=== PATIENT | male | born 1930 | race Caucasian/White ===

== ENCOUNTER 2017-08-10 14:49 | Inpatient (IN) | payer OTHER, BC ==
--- NOTE | 2017-08-10 14:55 | PDOC ---
History of Present Illness - History of Present Illness Initial Comments: 08/10/17 14:54 86 year old male with a hx of ESRD on dialysis /Ana M/Mon (last dialysis today) , DM, CHF, HTN, Became altered during chemotherapy for colon cancer appointment. Last known well 2:15. EMS reported that patient was previously alert, verbal and oriented to person only. New right sided facial droop. Per [facility]: At Baseline: alerted and oriented x3, does not walk, started radiation therapy yesterday for rectum PMH: On dialysis (this morning), diabetes, HTN, CHF, Dr. Bell PERSONNEL CLERK: Dr. Garcia Allergies: NKDA <Mitchell Toussaint - Last Filed: 08/11/17 12:12> <Ina Pino - Last Filed: 08/15/17 15:46> - General Chief Complaint: CVA/TIA Stated Complaint: POSS STROKE Past History <Mitchell Toussaint - Last Filed: 08/11/17 12:12> <Ina Pino - Last Filed: 08/15/17 15:46> - Past Medical History Allergies/Adverse Reactions: Allergies Allergy/AdvReac Type Severity Reaction Status Date / Time No Known Allergies Allergy Verified 08/10/17 14:51 *Physical Exam - Physical Exam Comments: 08/10/17 16:10 GENERAL: Not alert or oriented, unresponsive to name EYES: PERRLA, not able to assess extraocular eye muscles ENT: Dry mucus membranes NECK: mild JVD noted on exam LUNGS: CTA, no wheezes HEART: Tachycardic on exam, no murmurs appreciated ABDOMEN: Soft, nontender, BS present EXTREMITIES: Pulses not appreciated, 2+ pitting edema noted on exam NEUROLOGICAL: Unable to assess cranial nerves, patient has weakness of the L side of his face as well as weakness of the LLE with 0/5 motor strength and LLE unresponsive to pain. Patient has 2/5 motor strength of the RLE and is responsive to pain. RUE has 2/5 motor strength. LUE has 3/5 motor strength. <Mitchell Toussaint - Last Filed: 08/11/17 12:12> - Vital Signs Last Vital Signs Temp Pulse Resp BP Pulse Ox 99.1 F 91 H 22 92/53 94 L 08/15/17 14:14 08/15/17 14:14 08/15/17 14:14 08/15/17 14:14 08/15/17 09:00 <Ina Pino - Last Filed: 08/15/17 15:46> NIH Stroke Scale - Last Known Well Date/Time & Onset Date Last Known Well: 08/10/17 Time Last Known Well: 14:00 - Initial Evaluation Level of consciousness: Not alert, requires repeat stimulation to attend Ask patient the month and their age: Both incorrect Ask patient to open & close eyes; make fist and let go: Both incorrect Best gaze (horizontal eye movement): Forced deviation Visual field testing: Bilateral hemianopia (blind including cortical blindness) Facial paresis (Show teeth/raise eyebrows/close eyes tight): Partial paralysis ( total or near paralysis of lower face) Motor Function: Left Arm: Some effort against gravity Motor Function: Right Arm: Some effort against gravity Motor Function: Left Leg: No movement Motor Function: Right Leg: Some effort against gravity Limb Ataxia: Untestable (Joint fused or limb amputated), explain: (can't test due to mental status) Sensory(Use pinprick test arms,legs,trunk,face/side to side): Severe to total sensory loss Best language (Describe picture, name items, read sentences): Mute Dysarthria (read several words): Near unintelligible or unable to speak Extinction and Inattention: Profound elodia-inattention or extinction to more than one modality - Total Score NIH Stroke Scale Score: 32 <Mitchell Toussaint - Last Filed: 08/11/17 12:12> Critical Care Time/MDM Note - Medical Decision Making Note: 08/10/17 16:15 86 year old male with a hx of ESRD on dialysis /Mon/Mon (last dialysis today) , DM, CHF, HTN presenting for acute change in mental status after getting radiation therapy -CBC, CMP, Head CT, UA, Lactic acid -LA 2.8 <Mitchell Toussaint - Last Filed: 08/11/17 12:12> Discharge Disposition <Mitchell Toussaint - Last Filed: 08/11/17 12:12> <Ina Pino - Last Filed: 08/15/17 15:46> - Discharge Dispostion Disposition: TRANSFER ACUTE CARE/OTHER HOSP
--- NOTE | 2017-08-10 14:58 | PDOC ---
Attending Attestation - Resident Resident Name: Mitchell Toussaint - HPI HPI: 08/15/17 15:47 pt presents to the ED after the acute onset of altered mental status. Patient presented to radiation therapy in his usual state of health, and became mimimally responsive at 2:15-2:30. As per the patient's skilled nursing, his baseline is to be alert and oriented x 1. He is usually able to speak and follow verbal commands. History of ESRD on Hd, last HD on day of admission. Nereyda Vera called immediately on ED arrival. Case discussed with Dr. Duffy, who stated that due to the patient's severe global deficits, he did not feel that the patient was a TPA candidate. - Physicial Exam PE: 08/15/17 15:51 Agree with resident exam. On initial exam, patient was withdrawing to pain, but not speaking or following commands. Vital signs within normal limits, lungs are clear, heart regular rate and rhythm. - Medical Decision Making 08/15/17 15:52 Pt presents to the ED with the acute onset of altered mental status. Case discussed with Dr. Duffy on ED arrival, who does not feel that patient is a TPA candidate due to his global deficits. Patient has severe global deficits on exam, consistent with massive stroke or systemic cause of his symptoms such as infection or electrolyte disturbance. CT head shows no evidence of intracranial bleed. Labs show no electrolyte disturbance. Patient is afebrile rectally with only mildly elevated lactate. Will admit to medicine for altered mental status.
[2017-08-10 15:38] LABS: BASO % 0.2 % (0-2.0); HEMATOCRIT 23.1 % (35.4-49); HEMOGLOBIN 7.6 GM/dL (11.7-16.9); LYMPH % 14.8 % (8-40); MCHC 33.1 g/dl (32.0-35.9); MEAN CELL VOLUME 84.7 fl (80-96); MEAN PLT VOLUME 7.5 fl (7.5-11.1); MONO % 16.4 % (3.8-10.2); NEUT % 67.6 % (42.8-82.8); PLATELET COUNT 258 K/MM3 (134-434); RBC 2.73 M/mm3 (4.00-5.60); RDW 17.6 % (11.9-15.9); WHITE BLOOD COUNT 8.2 K/mm3 (4.0-10.0)
[2017-08-10 16:02] LABS: ALBUMIN 1.9 g/dl (3.4-5.0); ANION GAP 10 (8-16); BILIRUBIN,TOTAL 0.4 mg/dL (0.2-1.0); BLOOD UREA NITROGEN 35 mg/dL (7-18); CALCIUM 7.6 mg/dL (8.5-10.1); CHLORIDE 98 mmol/L (98-107); CO2 27 mmol/L (21-32); GLUCOSE,RANDOM 194 mg/dL (74-106); POTASSIUM 3.7 mmol/L (3.5-5.1); SGOT/AST 48 U/L (15-37); SGPT/ALT 47 U/L (12-78); SODIUM 135 mmol/L (136-145); TOT PROT 6.4 g/dl (6.4-8.2)
[2017-08-10 16:10] LABS: ALK PHOS 92 U/L (45-117)
--- NOTE | 2017-08-10 18:59 | PN ---
Teaching Attending Note Name of Resident: Johnny Valle ATTENDING PHYSICIAN STATEMENT I saw and evaluated the patient. I reviewed the resident's note and discussed the case with the resident. I agree with the resident's findings and plan as documented with exceptions below. SUBJECTIVE: patient currently with poor mental status, History obtained from HCP nephsarah Gongora, currently no prior records available. 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 Per ED physician, patient was unable to open eyes or move his right side, but noted with eye opening and some movements of right leg. Currently patient with minimal eye opening and some spontaneous movements of extermities but non verbal with no meaningful responses. Nephew at bedside, last saw him on Monday. Per him, patient had progressive decline since his 02/2017, his wheel chair bound, with chronic weakness of lower extremities, but able to wheel himself. Unable to do 12 point ROS, given mental status. OBJECTIVE: Vital Signs Period Temp Pulse Resp BP Sys/Sorensen Pulse Ox Last 24 Hr 70-74 18 127/63 98-98 Intake & Output 08/07/17 08/08/17 08/09/17 08/10/17 23:59 23:59 23:59 23:59 Weight 145 lb GENERAL: eye opening to voice, head leaning to left, no acute distress, cachectic HEAD: Normal with no signs of trauma. EYES: Right pupil reactive to light 2-> 1 mm, left pupil minimal reactive, Left eye lid droop EARS, NOSE, THROAT: Ears normal, nares patent, oropharynx clear without exudates. Dry mucous membrane. NECK: soft, supple, LUNGS: poor effort, positive breath sounds bilaterally, markedly limited exam HEART: S1S2 irregular ABDOMEN: Soft, ND, positive bowel sounds, no grimacing on exam, no voluntary or involuntary guarding or rigidity Extremities: bilateral lower extremities chronic edema with skin pitting and thickening, markedly larger on RLE than LLE, NEUROLOGICAL: opens eyes to voice, left eyelid droop, Rigth facial droop with flattening, doll's eye not appreciated, RUE flaccid, RLE minimal withdrawal to touch, LUE/LLE, withdraws to touch and spontaneous movements, further exam limited Active Medications Heparin Sodium (Porcine) (Heparin -) 5,000 unit SQ BID HAYES Laboratory Results - last 24 hr 08/10/17 08/10/17 08/10/17 15:31 15:31 15:31 WBC 8.2 RBC 2.73 L Hgb 7.6 L Hct 23.1 L MCV 84.7 MCH 28.0 MCHC 33.1 RDW 17.6 H Plt Count 258 MPV 7.5 Absolute Neuts (auto) 5.6 Neutrophils % 67.6 Lymphocytes % 14.8 Monocytes % 16.4 H Eosinophils % 1.0 Basophils % 0.2 Nucleated RBC % 0 Sodium 135 L Potassium 3.7 Chloride 98 Carbon Dioxide 27 Anion Gap 10 BUN 35 H Creatinine 3.0 H Creat Clearance w eGFR 19.94 Random Glucose 194 H Lactic Acid 2.8 H* Calcium 7.6 L Magnesium 2.0 Total Bilirubin 0.4 AST 48 H ALT 47 Alkaline Phosphatase 92 Ammonia Creatine Kinase 114 Troponin I 0.34 H Total Protein 6.4 Albumin 1.9 L TSH 2.38 Free T4 08/10/17 08/10/17 08/10/17 18:00 18:00 18:00 WBC RBC Hgb Hct MCV MCH MCHC RDW Plt Count MPV Absolute Neuts (auto) Neutrophils % Lymphocytes % Monocytes % Eosinophils % Basophils % Nucleated RBC % Sodium Potassium Chloride Carbon Dioxide Anion Gap BUN Creatinine Creat Clearance w eGFR Random Glucose Lactic Acid Calcium Magnesium Total Bilirubin AST ALT Alkaline Phosphatase Ammonia 25.5 Creatine Kinase Troponin I Total Protein Albumin TSH 2.62 D Free T4 1.[address] brain results reviewed EKG unavailable, multilple attempts, will repeat, Non concerning per discussion with ED physician ASSESSMENT AND PLAN: 86 yom with pMHx of as above admitted with AMS with right facial droop/ hemiparesis, while receiving chemoradiation for ?colon vs rectal CA -AMS with right facial droop/hemiparesis, ?Large CVA high on differential, ? medication effect from chemotherapy, vs encephalopathy from infectious process, ?seizure episode, unclear if patient with brain mets (no evidence of edema or midline shift on CT brain) -Elevated troponin, ?Demand from above vs from HD, low suspicion for ACS -ESRD on HD -Lactic acidosis -HTN -CHF -?DM -DVT sp IVC filter, ?PE Plan: Stroke tele, neuro checks q2h. Dr. Ferreira consulted from ED, not a tpa candidate per discussion with ED. MRI brain. Discuss with neurology, discuss if anti-epileptics loading. Renal consult, address if patient had HD today and ok for gentle hdyration overnight. NPO for now, dysphagia precautions Monitor troponin, check Ammonia. Nephrew to bring in further records, resume meds accordingly. Detailed discussion with jasvir Gongora who is HCP, wishes patient to be DNR/ DNI and would consider comfort measures based on clinical course and potential outcome. Dispo admit to stroke tele. Plan discussed with jasvir Gongora in detail, all questions answered. total admit time spent 65 min.
--- NOTE | 2017-08-10 20:38 | HP ---
CHIEF COMPLAINT: AMS PCP: ? [facility] HISTORY OF PRESENT ILLNESS: Pt accompanied by nephew who is also the health care proxy. Pt is an 86 y/o M with PMH Colorectal malignancy, ESRD (HD T, Tr, Sat) recent AVF in LUE and port in R chest (June), IDDM, CHF, HTN, recent NM (Feb), DVT/?PE with recent IVC filter placement, chronic pedal edema and stasis dermatitis with leg weakness. Pt normally lives at [facility] and is able to carry out most ADLs with some help, though he is wheelchair bound. Per nephew, pt has been mentally very sharp. Per nephew, pt was at his first chemo radiation session this morning when he was found to be unresponsive. Nephew states pt was given a pill to take, which nephew believes was a chemo medicine and had XRT started when symptoms began. Pt was scheduled to have HD this morning prior to chemo and XRT, but it is unclear from history whether he ever had HD today. Pt has been treated recently at [facility] and [facility]. ER course was notable for: (1) hb 7.6, Na 135, BUN 35, Fuel Assembler 3.0, Glucose 194, LA 2.8, Trop 0.34, Free T4 1.29 (2) CXR with ? L lower lobe infiltrate, cardiomegally. Head CT sig for numerous old CVA (3) Pt was made DNR/DNI Recent Travel: denies PAST MEDICAL HISTORY: as above PAST SURGICAL HISTORY: as above Social History: Smoking: Alcohol: Drugs: Family History: Allergies No Known Allergies Allergy (Verified 08/10/17 14:51) HOME MEDICATIONS: REVIEW OF SYSTEMS Unable to assess PHYSICAL EXAMINATION Vital Signs - 24 hr 08/10/17 08/10/17 14:51 15:00 Pulse Rate 70 74 Respiratory 18 Rate Blood Pressure 127/63 O2 Sat by Pulse 98 98 Oximetry (%) Gen: unresponsive to verbal command, sternal rub HEENT: Head turned left. unequal nasolabial folds. Left cheek appears flaccid as lips do not seal during exhalation Neck: supple. R port with prominent vein Chest: R dual lumen port Heart: irregular. s1s2 heard. No m/r/g appreciated Pulm: limited exam. No rales ronchi heard Abd: scaphoid. soft. No guarding, no hepatomegally Ext: massive b/l pedal edema to the knee. stasis dermatitis. LUE fistula ( immature, no thrill) Neuro: L gaze preference, 2-3mm sluggish pupils, does not obey commands. Doll's eye without vestibulo-occular reflex Laboratory Results - last 24 hr 08/10/17 08/10/17 08/10/17 15:31 15:31 15:31 WBC 8.2 RBC 2.73 L Hgb 7.6 L Hct 23.1 L MCV 84.7 MCH 28.0 MCHC 33.1 RDW 17.6 H Plt Count 258 MPV 7.5 Absolute Neuts (auto) 5.6 Neutrophils % 67.6 Lymphocytes % 14.8 Monocytes % 16.4 H Eosinophils % 1.0 Basophils % 0.2 Nucleated RBC % 0 Sodium 135 L Potassium 3.7 Chloride 98 Carbon Dioxide 27 Anion Gap 10 BUN 35 H Creatinine 3.0 H Creat Clearance w eGFR 19.94 Random Glucose 194 H Lactic Acid 2.8 H* Calcium 7.6 L Magnesium 2.0 Total Bilirubin 0.4 AST 48 H ALT 47 Alkaline Phosphatase 92 Ammonia Creatine Kinase 114 Troponin I 0.34 H Total Protein 6.4 Albumin 1.9 L TSH 2.38 Free T4 08/10/17 08/10/17 08/10/17 18:00 18:00 18:00 WBC RBC Hgb Hct MCV MCH MCHC RDW Plt Count MPV Absolute Neuts (auto) Neutrophils % Lymphocytes % Monocytes % Eosinophils % Basophils % Nucleated RBC % Sodium Potassium Chloride Carbon Dioxide Anion Gap BUN Creatinine Creat Clearance w eGFR Random Glucose Lactic Acid Calcium Magnesium Total Bilirubin AST ALT Alkaline Phosphatase Ammonia 25.5 Creatine Kinase Troponin I Total Protein Albumin TSH 2.62 D Free T4 1.29 H ASSESSMENT/PLAN: Pt is an 86 y/o M with extensive PMH including Colorectal malignancy, ESRD (HD T , Tr, Sat) recent AVF in LUE and port in R chest (June), IDDM, CHF, HTN, recent NM (Feb), DVT/?PE with recent IVC filter placement, chronic pedal edema and stasis dermatitis with leg weakness. Pt was admitted for possible CVA vs toxic metabolic encephalopathy. #AMS ? 2/2 CVA vs TME -AMS during 1st session of chemo and XRT -CT head remarkable for old infarcts -unresponsive. Unable to do full neuro exam #ESRD -Nephro on board -no need for urgent dialysis #IDDM -BGM TID -ISS TID #CHF -No rales at this time #HTN -pressure wnl at this time #DVT/PE -history not suggestive of DVT/PE #Pedal edema -get HD -chronic #FEN -not on fluids -borderline hyponatremia -NPO #PPx -Hep BID #Dispo -admitted for CVA r/o vs TME r/o -DNR/DNI Johnny Valle MD PGY-1 IM Visit type - Emergency Visit Emergency Visit: No - New Patient This patient is new to me today: No - Critical Care Critical Care patient: No Hospitalist Screening - Colonoscopy Questionnaire Colonoscopy Questionnaire: Colonoscopy Questionnaire - Patient: 50 - 75 years old and never had a screening colonoscopy: Unknown History of colon or rectal polyps, or CA: Unknown History of IBD, Crohn's disease or UC: Unknown History of abdominal radiation therapy as a child: Unknown - Relative: 1 with colon or rectal CA, or polyps at age 60 or younger: Unknown Colon or rectal CA diagnosed at age 45 or younger: Unknown Multiple relatives with colon or rectal CA: Unknown - Outcome: Screening Result: Negative Screen
[2017-08-10] MEDS ORDERED: HEPARIN NA (PORCINE) 5,000 UNITS/ML 1ML VIAL SQ SCH (22:00)
[2017-08-10 23:33] LABS: INR 1.13 (0.82-1.09); PROTHROMBIN TIME (PATIENT) 12.8 SEC (9.7-13.0)
[2017-08-10 23:39] VITALS: BMI 21.4
[2017-08-11 06:37] LABS: INR 1.14 (0.82-1.09); PROTHROMBIN TIME (PATIENT) 12.9 SEC (9.7-13.0)
[2017-08-11 06:40] LABS: ACTIVATED PTT 34.8 SECONDS (25.2-36.5)
[2017-08-11 06:54] LABS: BASO % 0.2 % (0-2.0); EOS % 0.2 % (0-4.5); HEMATOCRIT 20.6 % (35.4-49); LYMPH % 13.9 % (8-40); MCH 28.4 pg (25.7-33.7); MCHC 34.2 g/dl (32.0-35.9); MEAN PLT VOLUME 7.7 fl (7.5-11.1); MONO % 12.6 % (3.8-10.2); NEUT % 73.1 % (42.8-82.8); PLATELET COUNT 235 K/MM3 (134-434); RBC 2.48 M/mm3 (4.00-5.60); RDW 17.5 % (11.9-15.9); WHITE BLOOD COUNT 7.6 K/mm3 (4.0-10.0)
[2017-08-11 07:08] LABS: ALBUMIN 1.7 g/dl (3.4-5.0); ANION GAP 10 (8-16); BILIRUBIN,TOTAL 0.3 mg/dL (0.2-1.0); BLOOD UREA NITROGEN 43 mg/dL (7-18); CALCIUM 7.5 mg/dL (8.5-10.1); CHLORIDE 100 mmol/L (98-107); CHOLESTEROL 85 mg/dL (50-200); CO2 26 mmol/L (21-32); CREATININE 3.2 mg/dL (0.7-1.3); GLUCOSE,RANDOM 163 mg/dL (74-106); MAGNESIUM 2.2 mg/dL (1.8-2.4); PHOSPHOROUS 3.3 mg/dL (2.5-4.9); POTASSIUM 3.7 mmol/L (3.5-5.1); SGOT/AST 52 U/L (15-37); SGPT/ALT 37 U/L (12-78); SODIUM 136 mmol/L (136-145); TOT PROT 5.8 g/dl (6.4-8.2)
[2017-08-11 07:22] LABS: ALK PHOS 82 U/L (45-117); HDL CHOLESTEROL 23 mg/dL (40-60); N-TERMINAL BNP 70741.17 pg/ml (5-450); TRIGLYCERIDES 101 mg/dL (35-160)
--- NOTE | 2017-08-11 08:50 | EKG ---
Test Reason : Blood Pressure : / mmHG Vent. Rate : 085 BPM Atrial Rate : 138 BPM P-R Int : 000 ms QRS Dur : 088 ms QT Int : 370 ms P-R-T Axes : 000 -43 136 degrees QTc Int : 440 ms POOR DATA QUALITY, INTERPRETATION MAY BE ADVERSELY AFFECTED ATRIAL FIBRILLATION LEFT AXIS DEVIATION ANTEROSEPTAL INFARCT , AGE UNDETERMINED ABNORMAL ECG NO PREVIOUS ECGS AVAILABLE Confirmed by LIAT NAQVI MD ([id number]) on 08/11/2017 8:49:37 AM Referred By: Confirmed By:LIAT NAQVI MD
--- NOTE | 2017-08-11 09:56 | CONSULT ---
Consult - text type - Consultation Consultation Note: Neurology HISTORY OF PRESENT ILLNESS: 86 y/o M with PMH Colorectal malignancy, ESRD (HD T, Tr, Sat) recent AVF in LUE and port in R chest (June), IDDM, CHF, HTN, recent MA (Feb), DVT/?PE with recent IVC filter placement, chronic pedal edema and stasis dermatitis with leg weakness who lives at [facility] and is able to carry out most ADLs with some help , though he is wheelchair bound. Per notes, patient was at his first chemo radiation session this morning when he was found to be unresponsive. Nephew states pt was given a pill to take, which nephew believes was a chemo medicine and had XRT started when symptoms began. Pt was scheduled to have HD this morning prior to chemo and XRT, but it is unclear from history whether he ever had HD. He was brought to the hospital for AMS. CT head without acute changes. Contacted by ER, patient was confused, altered, not fully following commands. Admitted for further evaluation. CXR with ? L lower lobe infiltrate. This AM somnoloent, favors L side, not following commands well. Recent Travel: denies PAST MEDICAL HISTORY: as above PAST SURGICAL HISTORY: as above Social History: Smoking: Alcohol: Drugs: Family History: Allergies No Known Allergies Allergy Active Medications Heparin Sodium (Porcine) (Heparin -) 5,000 unit SQ BID HAYES REVIEW OF SYSTEMS Unable to assess PHYSICAL EXAMINATION Vital Signs Temperature 98.2 F 08/11/17 05:30 Pulse Rate 67 08/11/17 05:30 Respiratory Rate 20 08/11/17 05:30 Blood Pressure 110/65 08/11/17 05:30 O2 Sat by Pulse Oximetry (%) 96 08/10/17 15:00 Gen: unresponsive to verbal command, sternal rub HEENT: Head turned left. unequal nasolabial folds. Left cheek appears flaccid as lips do not seal during exhalation Neck: supple. R port with prominent vein Chest: R dual lumen port Heart: irregular. s1s2 heard. No m/r/g appreciated Pulm: limited exam. No rales ronchi heard Abd: scaphoid. soft. No guarding, no hepatomegally Ext: massive b/l pedal edema to the knee. stasis dermatitis. LUE fistula ( immature, no thrill) Neuro: L gaze preference, does not obey commands. Responds to painful stimulation CBCD WBC 7.6 K/mm3 (4.0-10.0) 08/11/17 05:30 RBC 2.48 M/mm3 (4.00-5.60) L 08/11/17 05:30 Hgb 7.0 GM/dL (11.7-16.9) L 08/11/17 05:30 Hct 20.6 % (35.4-49) L 08/11/17 05:30 MCV 83.0 fl (80-96) 08/11/17 05:30 MCHC 34.2 g/dl (32.0-35.9) 08/11/17 05:30 RDW 17.5 % (11.9-15.9) H 08/11/17 05:30 Plt Count 235 K/MM3 (134-434) 08/11/17 05:30 MPV 7.7 fl (7.5-11.1) 08/11/17 05:30 CMP Sodium 136 mmol/L (136-145) 08/11/17 05:30 Potassium 3.7 mmol/L (3.5-5.1) 08/11/17 05:30 Chloride 100 mmol/L (98-107) 08/11/17 05:30 Carbon Dioxide 26 mmol/L (21-32) 08/11/17 05:30 Anion Gap 10 (8-16) 08/11/17 05:30 BUN 43 mg/dL (7-18) H D 08/11/17 05:30 Creatinine 3.2 mg/dL (0.7-1.3) H 08/11/17 05:30 Creat Clearance w eGFR 18.51 (>60) 08/11/17 05:30 Random Glucose 163 mg/dL (74-106) H 08/11/17 05:30 Calcium 7.5 mg/dL (8.5-10.1) L 08/11/17 05:30 Total Bilirubin 0.3 mg/dL (0.2-1.0) D 08/11/17 05:30 AST 52 U/L (15-37) H 08/11/17 05:30 ALT 37 U/L (12-78) D 08/11/17 05:30 Alkaline Phosphatase 82 U/L (45-117) 08/11/17 05:30 Total Protein 5.8 g/dl (6.4-8.2) L 08/11/17 05:30 Albumin 1.7 g/dl (3.4-5.0) L 08/11/17 05:30 CARDIAC ENZYMES Creatine Kinase 114 IU/L (39-308) 08/10/17 15:31 Troponin I 0.51 ng/ml (0.00-0.05) H D 08/10/17 21:10 Ct head reviewed CXR reviewed ASSESSMENT/PLAN: 86 y/o M with PMH Colorectal malignancy, ESRD (HD T, Tr, Sat) recent AVF in LUE and port in R chest (June), IDDM, CHF, HTN, recent MA (Feb), DVT/?PE with recent IVC filter placement, chronic pedal edema and stasis dermatitis with leg weakness who lives at [facility] and is able to carry out most ADLs with some help , though he is wheelchair bound. Per notes, patient was at his first chemo radiation session this morning when he was found to be unresponsive. Nephew states pt was given a pill to take, which nephew believes was a chemo medicine and had XRT started when symptoms began. Pt was scheduled to have HD this morning prior to chemo and XRT, but it is unclear from history whether he ever had HD. He was brought to the hospital for AMS. CT head without acute changes. Contacted by ER, patient was confused, altered, not fully following commands. Admitted for further evaluation. CXR with ? L lower lobe infiltrate. This AM somnoloent, favors L side, not following commands well. MRI brain rordered. renal follow up regarding HD, possibly toxic metabolic encephalopathy. Monitor glucose, maintain euglycemic range. Monitor BP, can allow up to 160/90 for now, goal < 130/80 as outpatient. DVT ppx. IV fluids, maintain hydration. Speech/ swallow eval, aspiration precautions. DNR/DNI per notes.
[2017-08-11] MEDS: HEPARIN NA (PORCINE) 5,000 UNITS/ML 1ML VIAL SQ SCH ×2 (10:52→22:48)
--- NOTE | 2017-08-11 11:37 | CON.CARD ---
Cardiology Consult (text) - Consultation Consultation Note: cc: ams hpi: 86 m hx esrd on hd, dm, chf, htn, rectal ca, dvt s/p ivc filter, le edema/ venous insuff, mi 02/2017 (no details available), here with ams. Hx from charts , pt lethargic. Per charts was having chemo/xrt for rectal ca and became lethargic. pmh: per hpi psh: avf social: no tob fam: unknown ros: n/a 2/2 ams meds: Home Medications Medication Instructions Recorded Atorvastatin Calcium 1 tab PO DAILY 08/10/17 Carvedilol [Coreg -] 3.125 mg PO BID 08/10/17 Insulin Aspart [Novolog] See Protocol SQ ACHS 08/10/17 Pantoprazole Sodium [Protonix -] 40 mg PO DAILY 08/10/17 Petrolatum,White [Hydrophor] 1 applic TP BID 08/10/17 Vit A/Vitamin D3/E/Aloe V/Zinc 100 gm TP BID 08/10/17 [Periguard Ointment] pe: Vital Signs Period Temp Pulse Resp BP Sys/Sorensen Pulse Ox Last 24 Hr 97.7 F-98.8 F 66-81 18-22 110-132/51-86 96-98 nad no jvd lethargic rrr s1s2 no mrg cta bl, poor eff pos dp pt no carotid bruits abd nd pos bs no jaundice diaphoreis 1-2+ le edema bl, chronic stasis changes Laboratory Last Values WBC 7.6 K/mm3 (4.0-10.0) 08/11/17 05:30 RBC 2.48 M/mm3 (4.00-5.60) L 08/11/17 05:30 Hgb 7.0 GM/dL (11.7-16.9) L 08/11/17 05:30 Hct 20.6 % (35.4-49) L 08/11/17 05:30 MCV 83.0 fl (80-96) 08/11/17 05:30 MCH 28.4 pg (25.7-33.7) 08/11/17 05:30 MCHC 34.2 g/dl (32.0-35.9) 08/11/17 05:30 RDW 17.5 % (11.9-15.9) H 08/11/17 05:30 Plt Count 235 K/MM3 (134-434) 08/11/17 05:30 MPV 7.7 fl (7.5-11.1) 08/11/17 05:30 Absolute Neuts (auto) 5.5 # 08/11/17 05:30 Neutrophils % 73.1 % (42.8-82.8) 08/11/17 05:30 Lymphocytes % 13.9 % (8-40) 08/11/17 05:30 Monocytes % 12.6 % (3.8-10.2) H 08/11/17 05:30 Eosinophils % 0.2 % (0-4.5) 08/11/17 05:30 Basophils % 0.2 % (0-2.0) 08/11/17 05:30 Nucleated RBC % 0 % (0-0) 08/11/17 05:30 PT with INR 12.90 SEC (9.7-13.0) 08/11/17 05:30 INR 1.14 (0.82-1.09) 08/11/17 05:30 PTT (Actin FS) 34.8 SECONDS (25.2-36.5) 08/11/17 05:30 Sodium 136 mmol/L (136-145) 08/11/17 05:30 Potassium 3.7 mmol/L (3.5-5.1) 08/11/17 05:30 Chloride 100 mmol/L (98-107) 08/11/17 05:30 Carbon Dioxide 26 mmol/L (21-32) 08/11/17 05:30 Anion Gap 10 (8-16) 08/11/17 05:30 BUN 43 mg/dL (7-18) H D 08/11/17 05:30 Creatinine 3.2 mg/dL (0.7-1.3) H 08/11/17 05:30 Creat Clearance w eGFR 18.51 (>60) 08/11/17 05:30 POC Glucometer 179 UNITS (80-120) 08/11/17 05:35 Random Glucose 163 mg/dL (74-106) H 08/11/17 05:30 Lactic Acid 1.9 mmol/L (0.0-2.0) 08/10/17 21:10 Calcium 7.5 mg/dL (8.5-10.1) L 08/11/17 05:30 Phosphorus 3.3 mg/dL (2.5-4.9) 08/11/17 05:30 Magnesium 2.2 mg/dL (1.8-2.4) 08/11/17 05:30 Total Bilirubin 0.3 mg/dL (0.2-1.0) D 08/11/17 05:30 AST 52 U/L (15-37) H 08/11/17 05:30 ALT 37 U/L (12-78) D 08/11/17 05:30 Alkaline Phosphatase 82 U/L (45-117) 08/11/17 05:30 Ammonia 25.5 umol/L (11-32) 08/10/17 18:00 Creatine Kinase 114 IU/L (39-308) 08/10/17 15:31 Troponin I 0.51 ng/ml (0.00-0.05) H D 08/10/17 21:10 B-Natriuretic Peptide 80855.17 pg/ml (5-450) H 08/11/17 05:30 Total Protein 5.8 g/dl (6.4-8.2) L 08/11/17 05:30 Albumin 1.7 g/dl (3.4-5.0) L 08/11/17 05:30 Triglycerides 101 mg/dL (35-160) 08/11/17 05:30 Cholesterol 85 mg/dL (50-200) 08/11/17 05:30 Total LDL Cholesterol 51 mg/dL (5-100) 08/11/17 05:30 HDL Cholesterol 23 mg/dL (40-60) L 08/11/17 05:30 TSH 2.62 uIU/ml (0.358-3.74) D 08/10/17 18:00 Free T4 1.29 ng/dl (0.76-1.16) H 08/10/17 18:00 ecg: sr, pacs, nl intervals, lat twis tele: sr, pacs cxr: no chf a/p: 86 m hx esrd on hd, dm, chf, htn, rectal ca, dvt s/p ivc filter, le edema/ venous insuff, mi 02/2017 (no details available), here with ams. ams: -no obvious cardiac etiology -?sepsis, ?cva -neuro eval as well esrd: -cont hd per renal chronic chf, chronic venous insuff -check echo -hd per renal for vol management htn: -cont home meds cad, mi: -02/2017 mi per charts, no other details -check echo -cont statin -no signs acs pos trops: -borderline trops, flat trend, nl ck-->not c/w acs abnl ecg: -ecg/tele show sr with pacs, no afib anemia: -per pmd
--- NOTE | 2017-08-11 12:31 | PN ---
Progress Note (short form) - Note Progress Note: patient seen and examined in telemetry. Events noted Chart reviewed Also discussed with the hospitalist physician. Patient is poorly responsive Vital Signs Temp 98.2 F 08/11/17 05:30 Pulse 67 08/11/17 05:30 Resp 20 08/11/17 05:30 BP 110/65 08/11/17 05:30 Pulse Ox 96 08/10/17 15:00 Intake & Output 08/10/17 08/11/17 08/11/17 23:59 11:59 23:59 Intake Total 0 10 Balance 0 10 Weight 141 lb Intake: IV 10 saline lock 10 Oral 0 0 Other: Voiding Method Incontinent Height 5 ft 8 in Body Mass Index (BMI) 21.4 Weight Measurement Method Built in [facility] Weight Measurement Method Estimated by Staff Active Medications Heparin Sodium (Porcine) (Heparin -) 5,000 unit SQ BID [facility] Last Admin: 08/11/17 10:52 Dose: 5,000 unit Insulin Aspart (Novolog Vial Sliding Scale -) 1 vial SQ ACHS [facility]; Protocol CBC, BMP 08/11/17 05:30 08/11/17 05:30 physical exam Constitutional: Yes: poorly responsive Cardiovascular: Yes: Pulse Irregular Respiratory: Yes: Diminished Gastrointestinal: Yes: soft neuro--- left-sided gaze/ left-sided facial weakness Assessment/Plan acute CVA Rapid atrial fibrillation Renal insufficiency Anemia colorectal cancer Diabetes History of pulmonary embolism overall condition poor Prognosis grave MRI--pending Patient is DNR/DNI Will discuss with family Comfort care? Continue present care For now Consults noted and appreciated Will follow discussed with nursing staff also Critical care time--- 40 minutes
--- NOTE | 2017-08-11 13:40 | CONSULT ---
Admitting History and Physical - Primary Care Physician PCP: June Barajas - Admission History of Present Illness: Per EMR:86 m hx esrd on hd, dm, chf, htn, rectal ca, dvt s/p ivc filter, le edema/venous insuff, mi 02/2017 (no details available), here with ams. Hx from charts, pt lethargic. Per charts was having chemo/xrt for rectal ca and became lethargic. Nephew present. Pt was verbal at baseline, bedbound. History Source: Family Member, Medical Record Limitations to Obtaining History: Clinical Condition - Advance Directives Advance Directives: Yes: DNR - Smoking History Smoking history: Unknown if ever smoked Have you smoked in the past 12 months: No - Alcohol/Substance Use Hx Alcohol Use: No History - Admission Reason For Visit: ALTERED MENTAL STATUS - Diagnostics X-ray: Report Reviewed CT Scan: Report Reviewed - General Mental Status: Lethargic Attention: Profound Impairment - Hearing Hearing: Normal Speech Evaluation - Communication Communication: Yes: Non-Communicable (Lethargic) - Swallow Evaluation/Bedside Assessment Current Nutritional Intake: NPO Recommendations - Speech Evaluation, Impression/Plan Impression: Pt lethargic. Occassionally opening right eye with eye deviated to left. Moves right leg. Not following commands or attempting to vocalize. - Dysphagia Impressions/Plan Dysphagia Impressions: Risk of Aspiration (Too lethargic to feed) *Silent aspiration: cannot be R/O at bedside - Recommendations Diet Consistency: NPO (including medication.) Liquids: NPO
--- NOTE | 2017-08-11 14:50 | CONSULT ---
Consult Consult Specialty:: Nephrology Reason for Consultation:: ESRD - History of Present Illness Chief Complaint: sent in for altered mental status History of Present Illness: Pt is an 86 year old male with pmhx of ESRD and colon cancer who was sent in for altered mental status. He also has historyo f DM, CHF and HTN. He is on a TTS HD schedule. His last HD was yesterday. He was sent in after getting chemo for colon cancer. He is lethargic. He did open his eyes when I called his name. He tends to favor his left side. Hi nephew is at bedside who says that noticed a change in his mental status on the of this month. He was at the time still verbal. I was called to evaluate the pt as he is on HD. - History Source History Provided By: Medical Record - Past Medical History Cardio/Vascular: Yes: HTN, Hyperlipdemia Gastrointestinal: Yes: Other (colon cancer) Renal/: Yes: Renal Failure, Hemodialysis - Alcohol/Substance Use Hx Alcohol Use: No - Smoking History Smoking history: Unknown if ever smoked Have you smoked in the past 12 months: No Home Medications - Allergies Allergies/Adverse Reactions: Allergies Allergy/AdvReac Type Severity Reaction Status Date / Time No Known Allergies Allergy Verified 08/10/17 14:51 - Home Medications Home Medications: Ambulatory Orders Atorvastatin Calcium 1 tab PO DAILY 08/10/17 Carvedilol [Coreg -] 3.125 mg PO BID 08/10/17 Insulin Aspart [Novolog] See Protocol SQ ACHS 08/10/17 Pantoprazole Sodium [Protonix -] 40 mg PO DAILY 08/10/17 Petrolatum,White [Hydrophor] 1 applic TP BID 08/10/17 Vit A/Vitamin D3/E/Aloe V/Zinc [Periguard Ointment] 100 gm TP BID 08/10/17 Family Disease History - Family Disease History Family History: Unable to Obtain Review of Systems Unable to obtain ROS, reason: pt not verbal Physical Exam Vital Signs: Vital Signs Temperature 97.9 F 08/11/17 12:00 Pulse Rate 67 08/11/17 12:00 Respiratory Rate 18 08/11/17 13:50 Blood Pressure 118/61 08/11/17 12:00 O2 Sat by Pulse Oximetry (%) 96 08/11/17 13:50 Constitutional: Yes: Calm Neck: Yes: Supple Cardiovascular: Yes: S1, S2 Respiratory: Yes: CTA Bilaterally Gastrointestinal: Yes: Soft Renal/: Yes: Incontinence Musculoskeletal: Yes: Muscle Weakness Edema: Yes Edema: LLE: 1+, RLE: 1+ Integumentary: Yes: Venous Stasis Changes Neurological: Yes: Lethargy Labs: CBC, BMP 08/11/17 05:30 08/11/17 05:30 Laboratory Tests 08/10/17 08/10/17 08/11/17 15:31 15:31 05:30 Hgb 7.6 L 7.0 L Sodium Potassium BUN Creatinine 3.0 H 08/11/17 05:30 Hgb Sodium 136 Potassium 3.7 BUN 43 H D Creatinine 3.2 H Problem List - Problems (1) ESRD (end stage renal disease) Code(s): N18.6 - END STAGE RENAL DISEASE (2) CVA (cerebral vascular accident) Code(s): I63.9 - CEREBRAL INFARCTION, UNSPECIFIED Assessment/Plan Current Medications Generic Name Dose Route Start Last Admin Trade Name Freq PRN Reason Stop Dose Admin Heparin Sodium (Porcine) 5,000 unit 08/11/17 10:00 08/11/17 10:52 Heparin - SQ 5,000 unit BID HAYES Administration Insulin Aspart 1 vial 08/11/17 16:30 Novolog Vial Sliding Scale - SQ ACHS [facility] Protocol Impression 1. ESRD 2. altered mental status 3. HTN 4. DM 5. HLD 6. CHF 7. anemia Plan - HD in am - follow up MRI - neuro follow up - last HD was yesterday - transfuse PRN - called HD unit for prescription - PC, 3:30, 2k Dr Humphrey
[2017-08-11] MEDS ORDERED: SODIUM CHLORIDE 250 ML IV PRN (14:54)
--- NOTE | 2017-08-11 15:26 | PN ---
Progress Note (short form) - Note Progress Note: Radiation Onocology (office note placed on chart) 86 yo [facility] resident receiving palliative RT for locally advanced bleeding adenocarcinoma of rectum. Multiple comorbidities incl anemia, HTN, HLD, COPD, CHF, DM, ESRD on HD, DVT/PE s/p IVC filter. Was not a candidate for surgery or chemo (oral or iv). Began RT on 08/09, was noted to be less verbal but following commands. At 2nd RT on 08/10 became nonverbal and not following commands, sent to ER for eval. In office, noted to have right facial droop, RUE flaccidity and right neglect, LE edema. Appreciate input from all consultants. CVA vs toxic metab encephalopathy, CT neg for acute changes, awaiting MRI brain. Prognosis guarded. RT on hold.
[2017-08-11] MEDS: INSULIN SLIDING SCALE (NOVOLOG) 1 VIAL SQ SCH ×2 (17:52→22:48)
[2017-08-11] MEDS: DEXTROSE 5%-0.45% SALINE 1,000 ML IV SCH (17:52)
[2017-08-12] MEDS ORDERED: ACETAMINOPHEN 650 MG SUPP.RECT PR ONE (04:25)
[2017-08-12] MEDS: INSULIN SLIDING SCALE (NOVOLOG) 1 VIAL SQ SCH ×4 (06:13→21:38)
[2017-08-12] MEDS: HEPARIN NA (PORCINE) 5,000 UNITS/ML 1ML VIAL SQ SCH ×2 (09:54→21:36)
--- NOTE | 2017-08-12 10:40 | PN ---
Progress Note (short form) - Note Progress Note: s: lethargic, no overnight events o: Vital Signs Period Temp Pulse Resp BP Sys/Sorensen Pulse Ox Last 24 Hr 97.9 F-101.3 F 67-86 18-20 108-130/52-70 96-98 nad no jvd lethargic rrr s1s2 no mrg cta bl, poor eff abd nd pos bs no jaundice diaphoreis 1-2+ le edema bl, chronic stasis changes Current Medications Generic Name Dose Route Start Last Admin Trade Name Freq PRN Reason Stop Dose Admin Heparin Sodium (Porcine) 5,000 unit 08/11/17 10:00 08/12/17 09:54 Heparin - SQ 5,000 unit BID HAYES Administration Sodium Chloride 250 mls @ 3,000 mls/hr 08/11/17 14:54 Normal Saline - IV 08/12/17 14:55 PRN PRN Hypotension during Dialysis Dextrose/Sodium Chloride 1,000 mls @ 30 mls/hr 08/11/17 15:00 08/11/17 17:52 D5-1/2ns - IV 30 mls/hr ASDIR HAYES Administration Insulin Aspart 1 vial 08/11/17 16:30 08/12/17 06:13 Novolog Vial Sliding Scale - SQ 2 units ACHS HAYES Administration Protocol CBC, BMP 08/11/17 05:30 08/11/17 05:30 ecg: sr, pacs, nl intervals, lat twis echo 07/2017: sev dec lvef, nl rv, lae, mild ar, mild pr, mod mr,mod tr, rvsp 40- 50 tele: sr, pacs cxr: no chf a/p: 86 m hx esrd on hd, dm, chf, htn, rectal ca, dvt s/p ivc filter, le edema/ venous insuff, mi 02/2017 (no details available), here with ams. acute cva: -seen on mri -neuro following -cont tele esrd: -cont hd per renal chronic syst chf, chronic venous insuff -hd per renal for vol management -resume coreg when able to take po meds htn: -cont home meds cad, mi: -02/2017 mi per charts, no other details -cont statin when able to take po meds -no signs acs pos trops: -borderline trops, flat trend, nl ck-->not c/w acs abnl ecg: -ecg/tele show sr with pacs, no afib anemia: -per pmd
--- NOTE | 2017-08-12 11:08 | PN ---
Progress Note, Physician Chief Complaint: lethargic not responding - Current Medication List Current Medications: Active Medications Heparin Sodium (Porcine) (Heparin -) 5,000 unit SQ BID HAYES Last Admin: 08/12/17 09:54 Dose: 5,000 unit Sodium Chloride (Normal Saline -) 250 mls @ 3,000 mls/hr IV PRN PRN PRN Reason: Hypotension during Dialysis Stop: 08/12/17 14:55 Dextrose/Sodium Chloride (D5-1/2ns -) 1,000 mls @ 30 mls/hr IV ASDIR [facility] Last Admin: 08/11/17 17:52 Dose: 30 mls/hr Insulin Aspart (Novolog Vial Sliding Scale -) 1 vial SQ ACHS [facility]; Protocol Last Admin: 08/12/17 06:13 Dose: 2 units - Objective Vital Signs: Vital Signs Temperature 99.2 F 08/12/17 06:00 Pulse Rate 86 08/12/17 04:35 Respiratory Rate 20 08/12/17 04:35 Blood Pressure 108/52 08/12/17 06:00 O2 Sat by Pulse Oximetry (%) 98 08/11/17 21:00 Constitutional: Yes: No Distress, Calm Cardiovascular: Yes: Regular Rate and Rhythm Respiratory: Yes: Diminished Gastrointestinal: Yes: Normal Bowel Sounds, Soft. No: Tenderness Edema: No Labs: CBC, BMP 08/11/17 05:30 08/11/17 05:30 INR, PTT INR 1.14 (0.82-1.09) 08/11/17 05:30 Problem List - Problems (1) CVA (cerebral vascular accident) Code(s): I63.9 - CEREBRAL INFARCTION, UNSPECIFIED (2) ESRD (end stage renal disease) Code(s): N18.6 - END STAGE RENAL DISEASE (3) Anemia Code(s): D64.9 - ANEMIA, UNSPECIFIED Assessment/Plan PLAN Acute CVA Noted MRI and MRA -- pt poorly responsive -- keep NPO -- dialysis per renal -- palliative care -- will need to know GOC
--- NOTE | 2017-08-12 12:32 | PN ---
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 Per notes, patient was at his first chemo radiation session when he was found to be unresponsive. Nephew stated pt was given a pill to take, which nephew believed was a chemo medicine and had XRT started when symptoms began. Pt was scheduled to have HD the morning prior to chemo and spoke to renal and he was HD. Today HD today, plan is for lower blood flow. CT head without acute changes. MRI reviewed, L MCA infarct noted. Continued CVA work up, possibly embolic based on size and location. MRA also completed and no flow in distal L ICA. Mentioned to nurse, consider vascular evaluation though depends on goals of care and patient may be palliative. Cardiology follow up to eval if Afib on tele. Hold off on antiplatelet for now to avoid hemoragic conversion. Monitor BP, up to 160/100 ok for now. This AM somnoloent, still favors L side, not following commands well. Active Medications Heparin Sodium (Porcine) (Heparin -) 5,000 unit SQ BID [facility] Last Admin: 08/12/17 09:54 Dose: 5,000 unit Sodium Chloride (Normal Saline -) 250 mls @ 3,000 mls/hr IV PRN PRN PRN Reason: Hypotension during Dialysis Stop: 08/12/17 14:55 Dextrose/Sodium Chloride (D5-1/2ns -) 1,000 mls @ 30 mls/hr IV ASDIR [facility] Last Admin: 08/11/17 17:52 Dose: 30 mls/hr Insulin Aspart (Novolog Vial Sliding Scale -) 1 vial SQ ACHS [facility]; Protocol Last Admin: 08/12/17 06:13 Dose: 2 units PHYSICAL EXAMINATION Vital Signs Temperature 98.9 F 08/12/17 11:18 Pulse Rate 86 08/12/17 04:35 Respiratory Rate 20 08/12/17 11:18 Blood Pressure 105/68 08/12/17 11:18 O2 Sat by Pulse Oximetry (%) 98 08/12/17 11:17 Gen: unresponsive to verbal command, sternal rub HEENT: Head turned left. unequal nasolabial folds. Left cheek appears flaccid as lips do not seal during exhalation Neck: supple. R port with prominent vein Chest: R dual lumen port Heart: irregular. s1s2 heard. No m/r/g appreciated Pulm: limited exam. No rales ronchi heard Abd: scaphoid. soft. No guarding, no hepatomegally Ext: massive b/l pedal edema to the knee. stasis dermatitis. LUE fistula ( immature, no thrill) Neuro: L gaze preference, does not obey commands. Responds to painful stimulation, R hemiplegia, gait deferred. CBCD WBC 7.6 K/mm3 (4.0-10.0) 08/11/17 05:30 RBC 2.48 M/mm3 (4.00-5.60) L 08/11/17 05:30 Hgb 7.0 GM/dL (11.7-16.9) L 08/11/17 05:30 Hct 20.6 % (35.4-49) L 08/11/17 05:30 MCV 83.0 fl (80-96) 08/11/17 05:30 MCHC 34.2 g/dl (32.0-35.9) 08/11/17 05:30 RDW 17.5 % (11.9-15.9) H 08/11/17 05:30 Plt Count 235 K/MM3 (134-434) 08/11/17 05:30 MPV 7.7 fl (7.5-11.1) 08/11/17 05:30 CMP Sodium 136 mmol/L (136-145) 08/11/17 05:30 Potassium 3.7 mmol/L (3.5-5.1) 08/11/17 05:30 Chloride 100 mmol/L (98-107) 08/11/17 05:30 Carbon Dioxide 26 mmol/L (21-32) 08/11/17 05:30 Anion Gap 10 (8-16) 08/11/17 05:30 BUN 43 mg/dL (7-18) H D 08/11/17 05:30 Creatinine 3.2 mg/dL (0.7-1.3) H 08/11/17 05:30 Creat Clearance w eGFR 18.51 (>60) 08/11/17 05:30 Calcium 7.5 mg/dL (8.5-10.1) L 08/11/17 05:30 Total Bilirubin 0.3 mg/dL (0.2-1.0) D 08/11/17 05:30 AST 52 U/L (15-37) H 08/11/17 05:30 ALT 37 U/L (12-78) D 08/11/17 05:30 Alkaline Phosphatase 82 U/L (45-117) 08/11/17 05:30 Total Protein 5.8 g/dl (6.4-8.2) L 08/11/17 05:30 Albumin 1.7 g/dl (3.4-5.0) L 08/11/17 05:30 MRI brain reviewed MRA reviewde Ct head reviewed CXR reviewed ASSESSMENT/PLAN: 86 y/o M with PMH Colorectal malignancy, ESRD (HD T, Tr, Sat) recent AVF in LUE and port in R chest (June), IDDM, CHF, HTN, recent GA (Feb), 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 Per notes, patient was at his first chemo radiation session when he was found to be unresponsive. Nephew stated pt was given a pill to take, which nephew believed was a chemo medicine and had XRT started when symptoms began. Pt was scheduled to have HD the morning prior to chemo and spoke to renal and he was HD. Today HD today, plan is for lower blood flow. CT head without acute changes. MRI reviewed, L MCA infarct noted. Continued CVA work up, possibly embolic based on size and location. MRA also completed and no flow in distal L ICA. Mentioned to nurse, consider vascular evaluation though depends on goals of care and patient may be palliative. Cardiology follow up to eval if Afib on tele. Hold off on antiplatelet for now to avoid hemoragic conversion. Monitor BP, up to 160/100 ok for now. This AM somnoloent, still favors L side, not following commands well. Monitor glucose, maintain euglycemic range. Monitor BP, can allow up to 160/90 for now, goal < 130/80 as outpatient. DVT ppx. IV fluids, maintain hydration. DNR/DNI per notes. Per nurse, may be palliative care.
--- NOTE | 2017-08-12 14:14 | PN ---
Progress Note, Physician History of Present Illness: Pt seen and examined at bedside. He is lethargic. - Current Medication List Current Medications: Active Medications Heparin Sodium (Porcine) (Heparin -) 5,000 unit SQ BID [facility] Last Admin: 08/12/17 09:54 Dose: 5,000 unit Sodium Chloride (Normal Saline -) 250 mls @ 3,000 mls/hr IV PRN PRN PRN Reason: Hypotension during Dialysis Stop: 08/12/17 14:55 Dextrose/Sodium Chloride (D5-1/2ns -) 1,000 mls @ 30 mls/hr IV ASDIR [facility] Last Admin: 08/11/17 17:52 Dose: 30 mls/hr Insulin Aspart (Novolog Vial Sliding Scale -) 1 vial SQ ACHS [facility]; Protocol Last Admin: 08/12/17 13:49 Dose: Not Given - Objective Vital Signs: Vital Signs Temperature 98.9 F 08/12/17 11:18 Pulse Rate 86 08/12/17 04:35 Respiratory Rate 20 08/12/17 11:18 Blood Pressure 105/68 08/12/17 11:18 O2 Sat by Pulse Oximetry (%) 98 08/12/17 11:17 Constitutional: Yes: Calm Neck: Yes: Supple Cardiovascular: Yes: S1, S2 Respiratory: Yes: CTA Bilaterally Gastrointestinal: Yes: Soft Genitourinary: Yes: Incontinence Musculoskeletal: Yes: Muscle Weakness Edema: Yes Edema: LLE: 2+, RLE: 2+ Neurological: Yes: Lethargy Labs: CBC, BMP 08/11/17 05:30 08/11/17 05:30 INR, PTT INR 1.14 (0.82-1.09) 08/11/17 05:30 Problem List - Problems (1) ESRD (end stage renal disease) Code(s): N18.6 - END STAGE RENAL DISEASE (2) CVA (cerebral vascular accident) Code(s): I63.9 - CEREBRAL INFARCTION, UNSPECIFIED Assessment/Plan Current Medications Generic Name Dose Route Start Last Admin Trade Name Freq PRN Reason Stop Dose Admin Heparin Sodium (Porcine) 5,000 unit 08/11/17 10:00 08/12/17 09:54 Heparin - SQ 5,000 unit BID HAYES Administration Sodium Chloride 250 mls @ 3,000 mls/hr 08/11/17 14:54 Normal Saline - IV 08/12/17 14:55 PRN PRN Hypotension during Dialysis Dextrose/Sodium Chloride 1,000 mls @ 30 mls/hr 08/11/17 15:00 08/11/17 17:52 D5-1/2ns - IV 30 mls/hr ASDIR HAYES Administration Insulin Aspart 1 vial 08/11/17 16:30 08/12/17 13:49 Novolog Vial Sliding Scale - SQ Not Given ACHS [facility] Protocol Impression 1. ESRD 2. altered mental status 3. HTN 4. DM 5. HLD 6. CHF 7. anemia 8. CVA Plan - HD today - discussed with neuro, no contra-indication to HD today - monitor hg - will need to discuss GOC with family - pt on TTS HD schedule - transfuse PRN Dr Humphrey
[2017-08-12] MEDS: DEXTROSE 5%-0.45% SALINE 1,000 ML IV SCH (15:24)
[2017-08-12] MEDS: ACETAMINOPHEN 650 MG SUPP.RECT PR PRN ×2 (15:25→21:36)
[2017-08-12 16:56] LABS: HEMATOCRIT 21.1 % (35.4-49); MCH 27.8 pg (25.7-33.7); MEAN CELL VOLUME 84.1 fl (80-96); MEAN PLT VOLUME 7.7 fl (7.5-11.1); PLATELET COUNT 267 K/MM3 (134-434); RBC 2.51 M/mm3 (4.00-5.60); RDW 17.9 % (11.9-15.9); WHITE BLOOD COUNT 7.7 K/mm3 (4.0-10.0)
[2017-08-12 17:23] LABS: ANION GAP 9 (8-16); BLOOD UREA NITROGEN 56 mg/dL (7-18); CALCIUM 7.2 mg/dL (8.5-10.1); CHLORIDE 103 mmol/L (98-107); CO2 25 mmol/L (21-32); CREATININE 3.9 mg/dL (0.7-1.3); GLUCOSE,RANDOM 163 mg/dL (74-106); MAGNESIUM 2.2 mg/dL (1.8-2.4); PHOSPHOROUS 3.5 mg/dL (2.5-4.9); POTASSIUM 3.5 mmol/L (3.5-5.1); SODIUM 137 mmol/L (136-145)
[2017-08-13] MEDS: ACETAMINOPHEN 650 MG SUPP.RECT PR PRN ×3 (03:19→23:59)
[2017-08-13] MEDS: INSULIN SLIDING SCALE (NOVOLOG) 1 VIAL SQ SCH ×4 (06:00→22:19)
[2017-08-13] MEDS: HEPARIN NA (PORCINE) 5,000 UNITS/ML 1ML VIAL SQ SCH ×2 (09:49→22:15)
--- NOTE | 2017-08-13 10:17 | PN ---
Progress Note, Physician Chief Complaint: lethargic not responding - Current Medication List Current Medications: Active Medications Acetaminophen (Tylenol Suppository -) 650 mg DE Q6H PRN PRN Reason: FEVER OR PAIN Last Admin: 08/13/17 03:19 Dose: 650 mg Heparin Sodium (Porcine) (Heparin -) 5,000 unit SQ BID [facility]ES Last Admin: 08/13/17 09:49 Dose: 5,000 unit Dextrose/Sodium Chloride (D5-1/2ns -) 1,000 mls @ 30 mls/hr IV ASDIR [facility] Last Admin: 08/12/17 15:24 Dose: 30 mls/hr Insulin Aspart (Novolog Vial Sliding Scale -) 1 vial SQ ACHS [facility]; Protocol Last Admin: 08/13/17 06:00 Dose: 2 units - Objective Vital Signs: Vital Signs Temperature 102.1 F H 08/13/17 05:00 Pulse Rate 94 H 08/13/17 05:00 Respiratory Rate 22 08/13/17 08:58 Blood Pressure 102/50 08/13/17 05:00 O2 Sat by Pulse Oximetry (%) 97 08/13/17 08:58 Constitutional: Yes: No Distress, Calm Cardiovascular: Yes: Regular Rate and Rhythm Respiratory: Yes: Diminished Gastrointestinal: Yes: Normal Bowel Sounds, Soft. No: Tenderness Edema: No Labs: CBC, BMP 08/12/17 16:00 08/12/17 16:00 INR, PTT INR 1.14 (0.82-1.09) 08/11/17 05:30 Problem List - Problems (1) CVA (cerebral vascular accident) Code(s): I63.9 - CEREBRAL INFARCTION, UNSPECIFIED (2) ESRD (end stage renal disease) Code(s): N18.6 - END STAGE RENAL DISEASE (3) Anemia Code(s): D64.9 - ANEMIA, UNSPECIFIED Assessment/Plan PLAN Acute CVA Noted MRI and MRA -- pt poorly responsive -- keep NPO -- has elevated temps-- maybe central, but pancultured- given Levaquin -- palliative care -- spoke with Niece who is second HCP - she will discuss with her brother who is primary agent- they are considering hospice and discontinuing dialysis
--- NOTE | 2017-08-13 12:16 | PN ---
Progress Note (short form) - Note Progress Note: s: lethargic, no overnight events o: Vital Signs Period Temp Pulse Resp BP Sys/Sorensen Pulse Ox Last 24 Hr 98.9 F-102.9 F 80-148 18-24 100-148/37-65 97-97 nad no jvd lethargic rrr s1s2 no mrg cta bl, poor eff abd nd pos bs no jaundice diaphoreis 1-2+ le edema bl, chronic stasis changes Current Medications Generic Name Dose Route Start Last Admin Trade Name Freq PRN Reason Stop Dose Admin Acetaminophen 650 mg 08/12/17 15:20 08/13/17 03:19 Tylenol Suppository - IN 650 mg Q6H PRN Administration FEVER OR PAIN Heparin Sodium (Porcine) 5,000 unit 08/11/17 10:00 08/13/17 09:49 Heparin - SQ 5,000 unit BID [facility] Administration Dextrose/Sodium Chloride 1,000 mls @ 30 mls/hr 08/11/17 15:00 08/12/17 15:24 D5-1/2ns - IV 30 mls/hr ASDIR [facility] Administration Levofloxacin 250 mg in 50 mls @ 50 mls/hr 08/13/17 10:00 Levaquin 250 Mg Premixed Ivpb - IVPB Q2D@1000 [facility] Protocol Insulin Aspart 1 vial 08/11/17 16:30 08/13/17 06:00 Novolog Vial Sliding Scale - SQ 2 units ACHS [facility] Administration Protocol CBC, BMP 08/12/17 16:00 08/12/17 16:00 ecg: sr, pacs, nl intervals, lat twis echo 07/2017: sev dec lvef, nl rv, lae, mild ar, mild pr, mod mr,mod tr, rvsp 40- 50 tele: sr, pacs cxr: no chf a/p: 86 m hx esrd on hd, dm, chf, htn, rectal ca, dvt s/p ivc filter, le edema/ venous insuff, mi 02/2017 (no details available), here with ams. acute cva: -seen on mri -neuro following -cont tele esrd: -cont hd per renal chronic syst chf, chronic venous insuff -hd per renal for vol management -resume coreg when able to take po meds htn: -cont home meds cad, mi: -02/2017 mi per charts, no other details -cont statin when able to take po meds -no signs acs pos trops: -borderline trops, flat trend, nl ck-->not c/w acs abnl ecg: -ecg/tele show sr with pacs, no afib anemia: -per pmd
--- NOTE | 2017-08-13 13:37 | PN ---
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 and is able to carry out most ADLs with some help , though he is wheelchair bound. Per notes, patient was at his first chemo radiation session when he was found to be unresponsive. Nephew stated pt was given a pill to take, which nephew believed was a chemo medicine and had XRT started when symptoms began. Pt was scheduled to have HD the morning prior to chemo and spoke to renal and he was HD. CT head without acute changes. MRI reviewed, L MCA infarct noted. Continued CVA work up, possibly embolic based on size and location. MRA also completed and no flow in distal L ICA. Mentioned to nurse, consider vascular evaluation though depends on goals of care and patient may be palliative. Spoke to Renal, HD without issue on 08/12 using slow flow. Cardiology follow up to eval if Afib on tele. Hold off on antiplatelet for now to avoid hemoragic conversion. Monitor BP, up to 160/100 ok for now. This AM somnoloent, still favors L side, not following commands well. Active Medications Acetaminophen (Tylenol Suppository -) [address] Q6H PRN PRN Reason: FEVER OR PAIN Last Admin: 08/13/17 03:19 Dose: 650 mg Heparin Sodium (Porcine) (Heparin -) 5,000 unit SQ BID [facility] Last Admin: 08/13/17 09:49 Dose: 5,000 unit Dextrose/Sodium Chloride (D5-1/2ns -) 1,000 mls @ 30 mls/hr IV ASDIR [facility] Last Admin: 08/12/17 15:24 Dose: 30 mls/hr Levofloxacin (Levaquin 250 Mg Premixed Ivpb -) 250 mg in 50 mls @ 50 mls/hr IVPB Q2D@1000 [facility]; Protocol Insulin Aspart (Novolog Vial Sliding Scale -) 1 vial SQ ACHS [facility]; Protocol Last Admin: 08/13/17 12:48 Dose: Not Given PHYSICAL EXAMINATION Vital Signs Temperature 98.9 F 08/13/17 09:00 Pulse Rate 96 H 08/13/17 09:00 Respiratory Rate 20 08/13/17 09:00 Blood Pressure 109/60 08/13/17 09:00 O2 Sat by Pulse Oximetry (%) 97 08/13/17 08:58 HEENT: Head turned left. unequal nasolabial folds. Left cheek appears flaccid as lips do not seal during exhalation Neck: supple. R port with prominent vein Chest: R dual lumen port Heart: irregular. s1s2 heard. No m/r/g appreciated Pulm: limited exam. No rales ronchi heard Abd: scaphoid. soft. No guarding, no hepatomegally Ext: massive b/l pedal edema to the knee. stasis dermatitis. LUE fistula ( immature, no thrill) Neuro: L gaze preference, does not obey commands. Responds to painful stimulation, R hemiplegia, gait deferred. CBCD WBC 7.7 K/mm3 (4.0-10.0) 08/12/17 16:00 RBC 2.51 M/mm3 (4.00-5.60) L 08/12/17 16:00 Hgb 7.0 GM/dL (11.7-16.9) L 08/12/17 16:00 Hct 21.1 % (35.4-49) L 08/12/17 16:00 MCV 84.1 fl (80-96) 08/12/17 16:00 MCHC 33.0 g/dl (32.0-35.9) 08/12/17 16:00 RDW 17.9 % (11.9-15.9) H 08/12/17 16:00 Plt Count 267 K/MM3 (134-434) 08/12/17 16:00 MPV 7.7 fl (7.5-11.1) 08/12/17 16:00 CMP Sodium 137 mmol/L (136-145) 08/12/17 16:00 Potassium 3.5 mmol/L (3.5-5.1) 08/12/17 16:00 Chloride 103 mmol/L (98-107) 08/12/17 16:00 Carbon Dioxide 25 mmol/L (21-32) 08/12/17 16:00 Anion Gap 9 (8-16) 08/12/17 16:00 BUN 56 mg/dL (7-18) H 08/12/17 16:00 Creatinine 3.9 mg/dL (0.7-1.3) H 08/12/17 16:00 Creat Clearance w eGFR 14.73 (>60) 08/12/17 16:00 Calcium 7.2 mg/dL (8.5-10.1) L 08/12/17 16:00 Total Bilirubin 0.3 mg/dL (0.2-1.0) D 08/11/17 05:30 AST 52 U/L (15-37) H 08/11/17 05:30 ALT 37 U/L (12-78) D 08/11/17 05:30 Alkaline Phosphatase 82 U/L (45-117) 08/11/17 05:30 Total Protein 5.8 g/dl (6.4-8.2) L 08/11/17 05:30 Albumin 1.7 g/dl (3.4-5.0) L 08/11/17 05:30 MRI brain reviewed MRA reviewde Ct head reviewed CXR reviewed ASSESSMENT/PLAN: 86 y/o M with PMH Colorectal malignancy, ESRD (HD T, Tr, Sat) recent AVF in LUE and port in R chest (June), IDDM, CHF, HTN, recent MS (Feb), 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 and is able to carry out most ADLs with some help , though he is wheelchair bound. Per notes, patient was at his first chemo radiation session when he was found to be unresponsive. Nephew stated pt was given a pill to take, which nephew believed was a chemo medicine and had XRT started when symptoms began. Pt was scheduled to have HD the morning prior to chemo and spoke to renal and he was HD. Today HD today, plan is for lower blood flow. CT head without acute changes. MRI reviewed, L MCA infarct noted. Continued CVA work up, possibly embolic based on size and location. MRA also completed and no flow in distal L ICA. Mentioned to nurse, consider vascular evaluation though depends on goals of care and patient may be palliative. Cardiology follow up to eval if Afib on tele. Hold off on antiplatelet for now to avoid hemoragic conversion (likely to restart tomorrow if no issues). Monitor BP, up to 160/100 ok for now. This AM somnoloent, still favors L side, not following commands well. Monitor glucose, maintain euglycemic range. Monitor BP, can allow up to 160/90 for now, goal < 130/80 as outpatient. DVT ppx. IV fluids, maintain hydration. DNR/DNI per notes. Per nurse, likely palliative care.
--- NOTE | 2017-08-13 15:07 | PN ---
Progress Note, Physician History of Present Illness: Pt seen and examined at bedside earlier today. He is lethargic. - Current Medication List Current Medications: Active Medications Acetaminophen (Tylenol Suppository -) 650 mg [place] Q6H PRN PRN Reason: FEVER OR PAIN Last Admin: 08/13/17 03:19 Dose: 650 mg Heparin Sodium (Porcine) (Heparin -) 5,000 unit SQ BID [facility] Last Admin: 08/13/17 09:49 Dose: 5,000 unit Dextrose/Sodium Chloride (D5-1/2ns -) 1,000 mls @ 30 mls/hr IV ASDIR [facility] Last Admin: 08/12/17 15:24 Dose: 30 mls/hr Levofloxacin (Levaquin 250 Mg Premixed Ivpb -) 250 mg in 50 mls @ 50 mls/hr IVPB Q2D@1000 [facility]; Protocol Insulin Aspart (Novolog Vial Sliding Scale -) 1 vial SQ ACHS [facility]; Protocol Last Admin: 08/13/17 12:48 Dose: Not Given - Objective Vital Signs: Vital Signs Temperature 98.9 F 08/13/17 09:00 Pulse Rate 96 H 08/13/17 09:00 Respiratory Rate 20 08/13/17 09:00 Blood Pressure 109/60 08/13/17 09:00 O2 Sat by Pulse Oximetry (%) 97 08/13/17 08:58 Constitutional: Yes: Calm Eyes: Yes: Conjunctiva Clear HENT: Yes: Atraumatic Neck: Yes: Supple Cardiovascular: Yes: S1, S2 Respiratory: Yes: On Nasal O2 Genitourinary: Yes: Incontinence Musculoskeletal: Yes: Muscle Weakness Edema: Yes Edema: LLE: 1+, RLE: 1+ Integumentary: Yes: Venous Stasis Changes Neurological: Yes: Lethargy Labs: CBC, BMP 08/12/17 16:00 08/12/17 16:00 INR, PTT INR 1.14 (0.82-1.09) 08/11/17 05:30 Problem List - Problems (1) ESRD (end stage renal disease) Code(s): N18.6 - END STAGE RENAL DISEASE (2) CVA (cerebral vascular accident) Code(s): I63.9 - CEREBRAL INFARCTION, UNSPECIFIED Assessment/Plan Current Medications Generic Name Dose Route Start Last Admin Trade Name Freq PRN Reason Stop Dose Admin Acetaminophen 650 mg 08/12/17 15:20 08/13/17 03:19 Tylenol Suppository - OH 650 mg Q6H PRN Administration FEVER OR PAIN Heparin Sodium (Porcine) 5,000 unit 08/11/17 10:00 08/13/17 09:49 Heparin - SQ 5,000 unit BID [facility] Administration Dextrose/Sodium Chloride 1,000 mls @ 30 mls/hr 08/11/17 15:00 08/12/17 15:24 D5-1/2ns - IV 30 mls/hr ASDIR HAYES Administration Levofloxacin 250 mg in 50 mls @ 50 mls/hr 08/13/17 10:00 Levaquin 250 Mg Premixed Ivpb - IVPB Q2D@1000 [facility] Protocol Insulin Aspart 1 vial 08/11/17 16:30 08/13/17 12:48 Novolog Vial Sliding Scale - SQ Not Given ACHS [facility] Protocol Impression 1. ESRD 2. altered mental status 3. HTN 4. DM 5. HLD 6. CHF 7. anemia 8. CVA Plan - p[t tolerated HD yesterday - will stop fluids - continue to monitor - pt is lethargic - will need to discuss GOC with family - pt on TTS HD schedule - transfuse PRN Dr Humphrey
[2017-08-13] MEDS: DEXTROSE 5%-0.45% SALINE 1,000 ML IV SCH (17:40)
[2017-08-14] MEDS: INSULIN SLIDING SCALE (NOVOLOG) 1 VIAL SQ SCH ×4 (06:21→21:12)
[2017-08-14] MEDS: HEPARIN NA (PORCINE) 5,000 UNITS/ML 1ML VIAL SQ SCH ×2 (09:29→21:21)
[2017-08-14] MEDS: ACETAMINOPHEN 650 MG SUPP.RECT PR PRN ×2 (09:30→22:55)
--- NOTE | 2017-08-14 09:56 | PN ---
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 Per notes, patient was at his first chemo radiation session when he was found to be unresponsive. Nephew stated pt was given a pill to take, which nephew believed was a chemo medicine and had XRT started when symptoms began. Pt was scheduled to have HD the morning prior to chemo and spoke to renal and he was HD. CT head without acute changes. MRI reviewed, L MCA infarct noted. Continued CVA work up, possibly embolic based on size and location. MRA also completed and no flow in distal L ICA. Mentioned to nurse, consider vascular evaluation though depends on goals of care and patient may be palliative. Spoke to Renal, HD without issue on 08/12 using slow flow. Cardiology follow up to eval if Afib on tele. Will restart antiplatelet medication now, sufficient amount that risk for hemoragic transformation reduced. Monitor BP, up to 160/100 ok for now. This AM somnoloent, still favors L side, not following commands well. Active Medications Acetaminophen (Tylenol Suppository -) 650 mg [place] Q6H PRN PRN Reason: FEVER OR PAIN Last Admin: 08/14/17 09:30 Dose: 650 mg Heparin Sodium (Porcine) (Heparin -) 5,000 unit SQ BID [facility] Last Admin: 08/14/17 09:29 Dose: 5,000 unit Dextrose/Sodium Chloride (D5-1/2ns -) 1,000 mls @ 30 mls/hr IV ASDIR [facility] Last Admin: 08/13/17 17:40 Dose: Not Given Levofloxacin (Levaquin 250 Mg Premixed Ivpb -) 250 mg in 50 mls @ 50 mls/hr IVPB Q2D@1000 [facility]; Protocol Last Admin: 08/13/17 18:31 Dose: 50 mls/hr Insulin Aspart (Novolog Vial Sliding Scale -) 1 vial SQ ACHS [facility]; Protocol Last Admin: 08/14/17 06:21 Dose: Not Given PHYSICAL EXAMINATION Vital Signs Temperature 98.6 F 08/14/17 05:00 Pulse Rate 95 H 08/14/17 05:00 Respiratory Rate 22 08/14/17 05:00 Blood Pressure 99/55 08/14/17 05:00 O2 Sat by Pulse Oximetry (%) 97 08/13/17 20:00 HEENT: Head turned left. unequal nasolabial folds. Left cheek appears flaccid as lips do not seal during exhalation Neck: supple. R port with prominent vein Chest: R dual lumen port Heart: irregular. s1s2 heard. No m/r/g appreciated Pulm: limited exam. No rales ronchi heard Abd: scaphoid. soft. No guarding, no hepatomegally Ext: massive b/l pedal edema to the knee. stasis dermatitis. LUE fistula ( immature, no thrill) Neuro: L gaze preference, does not obey commands. Responds to painful stimulation, R hemiplegia, gait deferred. CBCD WBC 7.7 K/mm3 (4.0-10.0) 08/12/17 16:00 RBC 2.51 M/mm3 (4.00-5.60) L 08/12/17 16:00 Hgb 7.0 GM/dL (11.7-16.9) L 08/12/17 16:00 Hct 21.1 % (35.4-49) L 08/12/17 16:00 MCV 84.1 fl (80-96) 08/12/17 16:00 MCHC 33.0 g/dl (32.0-35.9) 08/12/17 16:00 RDW 17.9 % (11.9-15.9) H 08/12/17 16:00 Plt Count 267 K/MM3 (134-434) 08/12/17 16:00 MPV 7.7 fl (7.5-11.1) 08/12/17 16:00 CMP Sodium 137 mmol/L (136-145) 08/12/17 16:00 Potassium 3.5 mmol/L (3.5-5.1) 08/12/17 16:00 Chloride 103 mmol/L (98-107) 08/12/17 16:00 Carbon Dioxide 25 mmol/L (21-32) 08/12/17 16:00 Anion Gap 9 (8-16) 08/12/17 16:00 BUN 56 mg/dL (7-18) H 08/12/17 16:00 Creatinine 3.9 mg/dL (0.7-1.3) H 08/12/17 16:00 Creat Clearance w eGFR 14.73 (>60) 08/12/17 16:00 Calcium 7.2 mg/dL (8.5-10.1) L 08/12/17 16:00 Total Bilirubin 0.3 mg/dL (0.2-1.0) D 08/11/17 05:30 AST 52 U/L (15-37) H 08/11/17 05:30 ALT 37 U/L (12-78) D 08/11/17 05:30 Alkaline Phosphatase 82 U/L (45-117) 08/11/17 05:30 Total Protein 5.8 g/dl (6.4-8.2) L 08/11/17 05:30 Albumin 1.7 g/dl (3.4-5.0) L 08/11/17 05:30 MRI brain reviewed MRA reviewde Ct head reviewed CXR reviewed ASSESSMENT/PLAN: 86 y/o M with PMH Colorectal malignancy, ESRD (HD T, Tr, Sat) recent AVF in LUE and port in R chest (June), IDDM, CHF, HTN, recent LA (Feb), 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 Per notes, patient was at his first chemo radiation session when he was found to be unresponsive. Nephew stated pt was given a pill to take, which nephew believed was a chemo medicine and had XRT started when symptoms began. Pt was scheduled to have HD the morning prior to chemo and spoke to renal and he completed HD. CT head without acute changes. MRI reviewed, L MCA infarct noted. Continued CVA work up, possibly embolic based on size and location. MRA also completed and no flow in distal L ICA. Mentioned to nurse, consider vascular evaluation though depends on goals of care and patient may be palliative. Cardiology follow up to eval if Afib on tele. Hold off on antiplatelet for now to avoid hemoragic conversion (likely to restart tomorrow if no issues). Monitor BP, up to 160/100 ok for now. This AM somnoloent, still favors L side, not following commands well. Monitor glucose, maintain euglycemic range. Monitor BP, can allow up to 160/90 for now, goal < 130/80 as outpatient. DVT ppx. IV fluids, maintain hydration. DNR/DNI per notes. Will restart antiplatelet now as risk for hemoragic transformation reduced.
--- NOTE | 2017-08-14 11:47 | PN ---
Progress Note, Physician Chief Complaint: Cardiology for Ginelli/Gitig F/u stroke History of Present Illness: Still obtunded, goals of care being addressed with palliative care, DNR/DNI, remains in SR with PACs, no PAF. - Current Medication List Current Medications: Active Medications Acetaminophen (Tylenol Suppository -) 650 mg [place] Q6H PRN PRN Reason: FEVER OR PAIN Last Admin: 08/14/17 09:30 Dose: 650 mg Dipyridamole/Aspirin (Aggrenox -) 1 combo PO BID [facility] Heparin Sodium (Porcine) (Heparin -) 5,000 unit SQ BID [facility] Last Admin: 08/14/17 09:29 Dose: 5,000 unit Dextrose/Sodium Chloride (D5-1/2ns -) 1,000 mls @ 30 mls/hr IV ASDIR [facility] Last Admin: 08/13/17 17:40 Dose: Not Given Levofloxacin (Levaquin 250 Mg Premixed Ivpb -) 250 mg in 50 mls @ 50 mls/hr IVPB Q2D@1000 [facility]; Protocol Last Admin: 08/13/17 18:31 Dose: 50 mls/hr Insulin Aspart (Novolog Vial Sliding Scale -) 1 vial SQ ACHS [facility]; Protocol Last Admin: 08/14/17 11:42 Dose: Not Given - Objective Vital Signs: Vital Signs Temperature 100 F H 08/14/17 09:00 Pulse Rate 90 08/14/17 09:00 Respiratory Rate 22 08/14/17 09:00 Blood Pressure 124/57 08/14/17 09:00 O2 Sat by Pulse Oximetry (%) 96 08/14/17 09:00 Constitutional: Yes: No Distress, Calm, Thin Neck: Yes: Supple Cardiovascular: Yes: Regular Rate and Rhythm, Other (with ectopics) Respiratory: Yes: Regular, Diminished, On Nasal O2 Gastrointestinal: Yes: Normal Bowel Sounds, Soft Edema: No Labs: CBC, BMP 08/12/17 16:00 08/12/17 16:00 INR, PTT INR 1.14 (0.82-1.09) 08/11/17 05:30 - ....Imaging EKG: Report Reviewed (Tele: Rate-controlled afib) Problem List - Problems (1) Anemia Code(s): D64.9 - ANEMIA, UNSPECIFIED Qualifiers: Anemia type: due to chronic kidney disease Chronic kidney disease stage: on chronic dialysis Qualified Code(s): N18.6 - End stage renal disease; D63.1 - Anemia in chronic kidney disease; Z99.2 - Dependence on renal dialysis (2) CVA (cerebral vascular accident) Code(s): I63.9 - CEREBRAL INFARCTION, UNSPECIFIED Qualifiers: Precerebral and cerebral artery: middle cerebral artery Laterality of affected vessel: left (3) ESRD (end stage renal disease) Code(s): N18.6 - END STAGE RENAL DISEASE (4) Systolic dysfunction, left ventricle Code(s): I51.9 - HEART DISEASE, UNSPECIFIED Assessment/Plan ecg: sr, pacs, nl intervals, lat twis echo 07/2017: sev dec lvef 30-35%, nl rv, lae, mild ar, mild pr, mod mr,mod tr, rvsp 40-50 tele: sr, pacs cxr: no chf brain MRI: Lt MCA stroke a/p: 86 m hx esrd on hd, dm, chf, htn, rectal ca, dvt s/p ivc filter, le edema/ venous insuff, mi 02/2017 (no details available), here with ams. acute cva: -seen on mri -neuro following -cont tele, DVT prophylaxis, antiplatelets when oral intake possible, GOC being addressed esrd: -cont hd TTHS per renal chronic syst chf, chronic venous insuff -hd per renal for volume management -resume coreg when able to take po meds htn: -cont home meds cad, mi: -02/2017 mi per charts, no other details -cont statin when able to take po meds -no signs acs pos trops: -borderline trops, flat trend, nl ck-->not c/w acs abnl ecg: -ecg/tele show sr with pacs, no paroxysmal afib thus far anemia of chronic kidney disease: -per pmd and renal, transfuse PRN
--- NOTE | 2017-08-14 12:43 | PN ---
Progress Note, Physician - Current Medication List Current Medications: Active Medications Acetaminophen (Tylenol Suppository -) 650 mg [place] Q6H PRN PRN Reason: FEVER OR PAIN Last Admin: 08/14/17 09:30 Dose: 650 mg Dipyridamole/Aspirin (Aggrenox -) 1 combo PO BID [facility] Heparin Sodium (Porcine) (Heparin -) 5,000 unit SQ BID [facility] Last Admin: 08/14/17 09:29 Dose: 5,000 unit Dextrose/Sodium Chloride (D5-1/2ns -) 1,000 mls @ 30 mls/hr IV ASDIR [facility] Last Admin: 08/13/17 17:40 Dose: Not Given Levofloxacin (Levaquin 250 Mg Premixed Ivpb -) 250 mg in 50 mls @ 50 mls/hr IVPB Q2D@1000 [facility]; Protocol Last Admin: 08/13/17 18:31 Dose: 50 mls/hr Insulin Aspart (Novolog Vial Sliding Scale -) 1 vial SQ ACHS [facility]; Protocol Last Admin: 08/14/17 11:42 Dose: Not Given - Objective Vital Signs: Vital Signs Temperature 100 F H 08/14/17 09:00 Pulse Rate 90 08/14/17 09:00 Respiratory Rate 22 08/14/17 09:00 Blood Pressure 124/57 08/14/17 09:00 O2 Sat by Pulse Oximetry (%) 96 08/14/17 09:00 Labs: CBC, BMP 08/12/17 16:00 08/12/17 16:00 INR, PTT INR 1.14 (0.82-1.09) 08/11/17 05:30 Problem List - Problems (1) CVA (cerebral vascular accident) Code(s): I63.9 - CEREBRAL INFARCTION, UNSPECIFIED Qualifiers: Precerebral and cerebral artery: middle cerebral artery Laterality of affected vessel: left (2) ESRD (end stage renal disease) Code(s): N18.6 - END STAGE RENAL DISEASE (3) Anemia Code(s): D64.9 - ANEMIA, UNSPECIFIED Qualifiers: Anemia type: due to chronic kidney disease Chronic kidney disease stage: on chronic dialysis Qualified Code(s): N18.6 - End stage renal disease; D63.1 - Anemia in chronic kidney disease; Z99.2 - Dependence on renal dialysis
[2017-08-14] MEDS: ASPIRIN/DIPYRIDAMOLE 25 MG/200 MG CAPSULE (FP) PO SCH ×2 (12:57→21:11)
--- NOTE | 2017-08-14 15:07 | PN ---
Progress Note, Physician History of Present Illness: Pt seen and examined at bedside. He is lethargic and responding to tactile or verbal stimuli. - Current Medication List Current Medications: Active Medications Acetaminophen (Tylenol Suppository -) 650 mg [place] Q6H PRN PRN Reason: FEVER OR PAIN Last Admin: 08/14/17 09:30 Dose: 650 mg Dipyridamole/Aspirin (Aggrenox -) 1 combo PO BID [facility] Last Admin: 08/14/17 12:57 Dose: Not Given Heparin Sodium (Porcine) (Heparin -) 5,000 unit SQ BID [facility] Last Admin: 08/14/17 09:29 Dose: 5,000 unit Dextrose/Sodium Chloride (D5-1/2ns -) 1,000 mls @ 30 mls/hr IV ASDIR [facility] Last Admin: 08/13/17 17:40 Dose: Not Given Levofloxacin (Levaquin 250 Mg Premixed Ivpb -) 250 mg in 50 mls @ 50 mls/hr IVPB Q2D@1000 [facility]; Protocol Last Admin: 08/13/17 18:31 Dose: 50 mls/hr Insulin Aspart (Novolog Vial Sliding Scale -) 1 vial SQ ACHS [facility]; Protocol Last Admin: 08/14/17 11:42 Dose: Not Given - Objective Vital Signs: Vital Signs Temperature 99 F 08/14/17 14:04 Pulse Rate 85 08/14/17 14:04 Respiratory Rate 22 08/14/17 14:04 Blood Pressure 104/49 08/14/17 14:04 O2 Sat by Pulse Oximetry (%) 96 08/14/17 09:00 Constitutional: Yes: Calm Eyes: Yes: Conjunctiva Clear HENT: Yes: Atraumatic Neck: Yes: Supple Cardiovascular: Yes: S1, S2 Respiratory: Yes: Rhonchi Gastrointestinal: Yes: Soft Genitourinary: Yes: Incontinence Musculoskeletal: Yes: Muscle Weakness Edema: Yes Edema: LLE: 2+, RLE: 2+ Neurological: Yes: Lethargy Labs: CBC, BMP 08/12/17 16:00 08/12/17 16:00 INR, PTT INR 1.14 (0.82-1.09) 08/11/17 05:30 Problem List - Problems (1) ESRD (end stage renal disease) Code(s): N18.6 - END STAGE RENAL DISEASE (2) CVA (cerebral vascular accident) Code(s): I63.9 - CEREBRAL INFARCTION, UNSPECIFIED Qualifiers: Precerebral and cerebral artery: middle cerebral artery Laterality of affected vessel: left Assessment/Plan Current Medications Generic Name Dose Route Start Last Admin Trade Name Freq PRN Reason Stop Dose Admin Acetaminophen 650 mg 08/12/17 15:20 08/14/17 09:30 Tylenol Suppository - OH 650 mg Q6H PRN Administration FEVER OR PAIN Dipyridamole/Aspirin 1 combo 08/14/17 10:00 08/14/17 12:57 Aggrenox - PO Not Given BID [facility] Heparin Sodium (Porcine) 5,000 unit 08/11/17 10:00 08/14/17 09:29 Heparin - SQ 5,000 unit BID [facility] Administration Dextrose/Sodium Chloride 1,000 mls @ 30 mls/hr 08/11/17 15:00 08/13/17 17:40 D5-1/2ns - IV Not Given ASDIR [facility] Levofloxacin 250 mg in 50 mls @ 50 mls/hr 08/13/17 10:00 08/13/17 18:31 Levaquin 250 Mg Premixed Ivpb - IVPB 50 mls/hr Q2D@1000 [facility] Administration Protocol Insulin Aspart 1 vial 08/11/17 16:30 08/14/17 11:42 Novolog Vial Sliding Scale - SQ Not Given ACHS [facility] Protocol Impression 1. ESRD 2. altered mental status 3. HTN 4. DM 5. HLD 6. CHF 7. anemia 8. CVA Plan - family have decided to stop HD - pt will likely be discharged on hospice - discussed with HCP Rolan Galvan and he wants to stop HD - will follow PRN Dr Humphrey
[2017-08-15] MEDS: INSULIN SLIDING SCALE (NOVOLOG) 1 VIAL SQ SCH ×2 (06:20→11:38)
--- NOTE | 2017-08-15 09:27 | PN ---
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 Per notes, patient was at his first chemo radiation session when he was found to be unresponsive. Nephew stated pt was given a pill to take, which nephew believed was a chemo medicine and had XRT started when symptoms began. Pt was scheduled to have HD the morning prior to chemo and spoke to renal and he was HD. CT head without acute changes. MRI reviewed, L MCA infarct noted. Continued CVA work up, possibly embolic based on size and location. MRA also completed and no flow in distal L ICA. Mentioned to nurse, consider vascular evaluation though depends on goals of care and patient may be palliative. Restarted antiplatelet medication 08/14, no acute events or changes. This AM still somnoloent, but briefly arousable, still favors L side, not following commands well. No significant improvement in symptoms. Active Medications Acetaminophen (Tylenol Suppository -) 650 mg IA Q6H PRN PRN Reason: FEVER OR PAIN Last Admin: 08/14/17 22:55 Dose: 650 mg Dipyridamole/Aspirin (Aggrenox -) 1 combo PO BID [facility] Last Admin: 08/14/17 21:11 Dose: Not Given Heparin Sodium (Porcine) (Heparin -) 5,000 unit SQ BID [facility] Last Admin: 08/14/17 21:21 Dose: 5,000 unit Levofloxacin (Levaquin 250 Mg Premixed Ivpb -) 250 mg in 50 mls @ 50 mls/hr IVPB Q2D@1000 [facility]; Protocol Last Admin: 08/13/17 18:31 Dose: 50 mls/hr Insulin Aspart (Novolog Vial Sliding Scale -) 1 vial SQ ACHS [facility]; Protocol Last Admin: 08/15/17 06:20 Dose: Not Given PHYSICAL EXAMINATION Vital Signs Period Temp Pulse Resp BP Sys/Sorensen Pulse Ox Last 24 Hr 98.2 F-99 F 81-97 20-26 101-109/49-70 96 HEENT: Head turned left. unequal nasolabial folds. Left cheek appears flaccid as lips do not seal during exhalation Neck: supple. R port with prominent vein Chest: R dual lumen port Heart: irregular. s1s2 heard. No m/r/g appreciated Pulm: limited exam. No rales ronchi heard Abd: scaphoid. soft. No guarding, no hepatomegally Ext: massive b/l pedal edema to the knee. stasis dermatitis. LUE fistula ( immature, no thrill) Neuro: L gaze preference, does not obey commands. Responds to painful stimulation, R hemiplegia, gait deferred. CBCD WBC 7.7 K/mm3 (4.0-10.0) 08/12/17 16:00 RBC 2.51 M/mm3 (4.00-5.60) L 08/12/17 16:00 Hgb 7.0 GM/dL (11.7-16.9) L 08/12/17 16:00 Hct 21.1 % (35.4-49) L 08/12/17 16:00 MCV 84.1 fl (80-96) 08/12/17 16:00 MCHC 33.0 g/dl (32.0-35.9) 08/12/17 16:00 RDW 17.9 % (11.9-15.9) H 08/12/17 16:00 Plt Count 267 K/MM3 (134-434) 08/12/17 16:00 MPV 7.7 fl (7.5-11.1) 08/12/17 16:00 CMP Sodium 137 mmol/L (136-145) 08/12/17 16:00 Potassium 3.5 mmol/L (3.5-5.1) 08/12/17 16:00 Chloride 103 mmol/L (98-107) 08/12/17 16:00 Carbon Dioxide 25 mmol/L (21-32) 08/12/17 16:00 Anion Gap 9 (8-16) 08/12/17 16:00 BUN 56 mg/dL (7-18) H 08/12/17 16:00 Creatinine 3.9 mg/dL (0.7-1.3) H 08/12/17 16:00 Creat Clearance w eGFR 14.73 (>60) 08/12/17 16:00 Calcium 7.2 mg/dL (8.5-10.1) L 08/12/17 16:00 Total Bilirubin 0.3 mg/dL (0.2-1.0) D 08/11/17 05:30 AST 52 U/L (15-37) H 08/11/17 05:30 ALT 37 U/L (12-78) D 08/11/17 05:30 Alkaline Phosphatase 82 U/L (45-117) 08/11/17 05:30 Total Protein 5.8 g/dl (6.4-8.2) L 08/11/17 05:30 Albumin 1.7 g/dl (3.4-5.0) L 08/11/17 05:30 MRI brain reviewed MRA reviewde Ct head reviewed CXR reviewed ASSESSMENT/PLAN: 86 y/o M with PMH Colorectal malignancy, ESRD (HD T, Tr, Sat) recent AVF in LUE and port in R chest (June), IDDM, CHF, HTN, recent NE (Feb), 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 Per notes, patient was at his first chemo radiation session when he was found to be unresponsive. Nephew stated pt was given a pill to take, which nephew believed was a chemo medicine and had XRT started when symptoms began. Pt was scheduled to have HD the morning prior to chemo and spoke to renal and he completed HD. CT head without acute changes. MRI reviewed, L MCA infarct noted. Continued CVA work up, possibly embolic based on size and location. MRA also completed and no flow in distal L ICA. Mentioned to nurse, consider vascular evaluation though depends on goals of care and patient palliative. Aggrenox started 08/14 as anitplatelet regiment. Monitor BP, up to 160/100 ok for now. This AM somnoloent, still favors L side, not following commands well. Monitor glucose, maintain euglycemic range. Monitor BP, can allow up to 140/90 for now, goal < 130/80 as outpatient. DVT ppx. IV fluids, maintain hydration. DNR/DNI per notes.
[2017-08-15] MEDS: HEPARIN NA (PORCINE) 5,000 UNITS/ML 1ML VIAL SQ SCH (10:23)
[2017-08-15] MEDS: ASPIRIN/DIPYRIDAMOLE 25 MG/200 MG CAPSULE (FP) PO SCH (10:23)
--- NOTE | 2017-08-15 10:58 | PN ---
Progress Note, Physician Chief Complaint: Coverage for Drs. Mccormick/Chandni Events noted Nonverbal and poorly responsive History of Present Illness: Patient was seen and examined. Chart was reviewed - Current Medication List Current Medications: Active Medications Acetaminophen (Tylenol Suppository -) 650 mg CO Q6H PRN PRN Reason: FEVER OR PAIN Last Admin: 08/14/17 22:55 Dose: 650 mg Dipyridamole/Aspirin (Aggrenox -) 1 combo PO BID [facility] Last Admin: 08/15/17 10:23 Dose: Not Given Heparin Sodium (Porcine) (Heparin -) 5,000 unit SQ BID [facility] Last Admin: 08/15/17 10:23 Dose: 5,000 unit Levofloxacin (Levaquin 250 Mg Premixed Ivpb -) 250 mg in 50 mls @ 50 mls/hr IVPB Q2D@1000 [facility]; Protocol Last Admin: 08/15/17 10:25 Dose: 50 mls/hr Insulin Aspart (Novolog Vial Sliding Scale -) 1 vial SQ ACHS [facility]; Protocol Last Admin: 08/15/17 06:20 Dose: Not Given - Objective Vital Signs: Vital Signs Temperature 99.2 F 08/15/17 10:00 Pulse Rate 94 H 08/15/17 10:00 Respiratory Rate 18 08/15/17 10:00 Blood Pressure 102/54 08/15/17 10:00 O2 Sat by Pulse Oximetry (%) 96 08/14/17 21:00 Neck: Yes: Supple Cardiovascular: Yes: Regular Rate and Rhythm, S1, S2 Respiratory: Yes: Diminished Gastrointestinal: Yes: Normal Bowel Sounds, Soft. No: Tenderness Edema: No Labs: CBC, BMP 08/12/17 16:00 08/12/17 16:00 Problem List - Problems (1) CAD (coronary artery disease) Code(s): I25.10 - ATHSCL HEART DISEASE OF [place] CORONARY ARTERY W/O ANG PCTRS Qualifiers: Coronary Disease-Associated Artery/Lesion type: [place] artery [place] vs. transplanted heart: [place] heart Associated angina: without angina Qualified Code(s): I25.10 - Atherosclerotic heart disease of [place] coronary artery without angina pectoris (2) Demand ischemia Code(s): I24.8 - OTHER FORMS OF ACUTE ISCHEMIC HEART DISEASE (3) HTN (hypertension) Code(s): I10 - ESSENTIAL (PRIMARY) HYPERTENSION Qualifiers: Hypertension type: essential hypertension Qualified Code(s): I10 - Essential (primary) hypertension (4) Anemia Code(s): D64.9 - ANEMIA, UNSPECIFIED Qualifiers: Anemia type: due to chronic kidney disease Chronic kidney disease stage: on chronic dialysis Qualified Code(s): N18.6 - End stage renal disease; D63.1 - Anemia in chronic kidney disease; Z99.2 - Dependence on renal dialysis (5) CVA (cerebral vascular accident) Code(s): I63.9 - CEREBRAL INFARCTION, UNSPECIFIED Qualifiers: Precerebral and cerebral artery: middle cerebral artery Laterality of affected vessel: left (6) ESRD (end stage renal disease) Code(s): N18.6 - END STAGE RENAL DISEASE (7) Systolic dysfunction, left ventricle Code(s): I51.9 - HEART DISEASE, UNSPECIFIED Assessment/Plan 1. Acute CVA 2. HTN 3. CAD with history of LA 4. Elevated troponin likely demand ischemia 5. Abnormal ECG 6. CKD 7. Organic brain/dementia 8. History of colorectal malignancy history of chemo and XRT 9. DVT s/p IVC filter 10. CKD/ESRD stopped HD PLAN: 1. Supportive care/possible Hospice 2. Aggrenox as per Neuro 3. Currently not on cardiac medications (previously on Carvedilol and Atrorvastatin) Prognosis: poor Theron May MD
--- NOTE | 2017-08-15 11:37 | DS ---
Physical Examination Vital Signs: Vital Signs Temperature 99.2 F 08/15/17 10:00 Pulse Rate 94 H 08/15/17 10:00 Respiratory Rate 18 08/15/17 10:00 Blood Pressure 102/54 08/15/17 10:00 O2 Sat by Pulse Oximetry (%) 96 08/14/17 21:00 Labs: CBC, BMP 08/12/17 16:00 08/12/17 16:00 Discharge Summary Reason For Visit: ALTERED MENTAL STATUS Current Active Problems Anemia (Acute) CAD (coronary artery disease) (Acute) CVA (cerebral vascular accident) (Acute) Demand ischemia (Acute) ESRD (end stage renal disease) (Acute) HTN (hypertension) (Acute) Systolic dysfunction, left ventricle (Acute) - Instructions Referrals: ON STAFF,NOT [Primary Care Provider] - - Home Medications Comprehensive Discharge Medication List: Ambulatory Orders Atorvastatin Calcium 1 tab PO DAILY 08/10/17 Carvedilol [Coreg -] 3.125 mg PO BID 08/10/17 Insulin Aspart [Novolog] See Protocol SQ ACHS 08/10/17 Pantoprazole Sodium [Protonix -] 40 mg PO DAILY 08/10/17 Petrolatum,White [Hydrophor] 1 applic TP BID 08/10/17 Vit A/Vitamin D3/E/Aloe V/Zinc [Periguard Ointment] 100 gm TP BID 08/10/17
[2017-08-15 14:15] VITALS: BP 92/53; PULSE 91; TEMP 99.1
[2017-08-16 00:09] LABS: HBSAG SCREEN Negative (Negative); HEP A AB, IGM Negative (Negative); HEP B CORE AB, TOT Negative (Negative)
== END 2017-08-15 14:00 | disposition hospice, inpatient (51) | DRG 64 ==
LOC: JER 14:49 → JERBED 17:35 → J8W 21:14 → J4W 21:18
PROVIDERS: ADMIT Internal Medicine; ATTEND Internal Medicine
PROC: 5A1D70Z Performance of Urinary Filtration, Intermittent, Less than 6 Hours Per Day (ICD-10-PCS; principal; 2017-08-10)
DX: I63.9 Cerebral infarction, unspecified (principal); N18.6 End stage renal disease; E87.1 Hypo-osmolality and hyponatremia; I13.2 Hypertensive heart and chronic kidney disease with heart failure and with stage 5 chronic kidney disease, or end stage renal disease; I50.22 Chronic systolic (congestive) heart failure; I69.354 Hemiplegia and hemiparesis following cerebral infarction affecting left non-dominant side; I24.8 Other forms of acute ischemic heart disease; R29.732 NIHSS score 32; I25.2 Old myocardial infarction; E78.5 Hyperlipidemia, unspecified; E11.22 Type 2 diabetes mellitus with diabetic chronic kidney disease; I25.10 Atherosclerotic heart disease of native coronary artery without angina pectoris; D63.1 Anemia in chronic kidney disease; R94.31 Abnormal electrocardiogram [ECG] [EKG]; I73.9 Peripheral vascular disease, unspecified; I48.91 Unspecified atrial fibrillation; Z86.711 Personal history of pulmonary embolism; Z99.2 Dependence on renal dialysis; Z85.038 Personal history of other malignant neoplasm of large intestine; Z66 Do not resuscitate; Z99.3 Dependence on wheelchair
CPT/HCPCS: 36415; 70450-TC; 70544-TC; 70551-TC; 71045-TC-FY; 80048; 80053; 80061; 82140; 82550; 82962; 83605; 83721; 83735; 83880; 84100; 84439; 84443; 84484; 85025; 85027; 85610; 85730; 86704; 86706; 86708; 87040; 87340; 93005; 93010; 93306-TC; 97161-GP; 99285-25; J1644